=== PATIENT | female | born 1950 | race Caucasian/White ===

== ENCOUNTER 2023-12-06 15:27 | Inpatient (IN) | payer OTHER, SELFPAY ==
[2023-12-06 10:35] VITALS: BP 107/70
[2023-12-06 11:16] VITALS: BMI 22.1
[2023-12-06 11:21] VITALS: BP 125/61
--- NOTE | 2023-12-06 12:20 | ED.GENMED ---
History of Present Illness
<Corinna Arellano PA-C - Last Filed: 12/18/23 10:02>
General
Chief Complaint: Nose Bleed
Source: patient and family
Exam Limitations: dementia
Time Seen by Provider: 12/06/23 11:20
Nursing documentation reviewed up to this point in time: agreed with
Travel History
Have you had any contact with someone who has COVID-19?: No
Do you have any symptoms of coronavirus? Fever > 100 degrees, chills, cough, shortness of breath, sore throat, loss of taste or smell, muscle aches, or headache?: No
History of Present Illness
History of Present Illness:
73 Y/O F with ho RA on hydroxychloroquine, prednisone
here with sore thraot x 1 week, mouth sores which are new and painful
she also had a spontaneous L nose bleed this mornig
she thinks she blew her nose before it started
no active bleeding now, she held pressure and it stopped
she has not had any fever, chills
Past History
<ACE De Dios Last Filed: 12/18/23 10:02>
Past History
ED Past Medical History: GERD
ED Past Surgical History: None
Social History
Tobacco: Non-smoker
Personal:
Living: with family
Review of Systems
<ACE De Dios Last Filed: 12/18/23 10:02>
Review of Systems
Allergies reviewed?: Yes
All Other Systems: Not applicable
Phy Exam
<ACE De Dios Last Filed: 12/18/23 10:02>
Physical Exam
Physical Exam:
GENERAL: Alert , in no apparent distress, generally weak
EYE: pupils equal and reactive
NECK: Supple
ENT: difficult exam post pharynx
pt has some inflammation,e rythema
she does not have obvious exudates
but there are lesions to mucosa lower lip and right cheek that look like stomatitis
left anterior spetal nostril with dried blood, no active bleeding
CARDIAC: Regular rate and rhythm, no edema
LUNGS: Clear breath sounds bilaterally, no acute respiratory distress, no wheezes/rales/rhonchi, occ cough
ABDOMEN: Soft, without focal tenderness, no r/g, no cvat, normal bowel sounds
NEUROLOGICAL: Alert and oriented, no focal neuro deficits
SKIN: Warm and dry, skin intact.
MUSCULOSKELETAL: No edema, well perfused.
PSYCH: Normal and appropriate interaction.
Course
<Corinna Arellano PA-C - Last Filed: 12/18/23 10:02>
Orders/Labs/Results
Orders:
Orders
12/06/23 11:25
Rapid Strep Group A Urgent
SUNDAR Source: Throat/Pharynx
Specimen Description:
Date Specimen was Collected: 12/06/23
Time Specimen was Collected: 11:24
Throat Culture [Throat Culture, Comprehensive] Urgent
SUNDAR Source: Throat/Pharynx
Specimen Description:
Date Specimen was Collected: 12/06/23
Time Specimen was Collected: 11:24
12/06/23 12:25
IV Insert/Care/Rem.- Treatment PRN
0.9% Sodium Chloride 1000 ml [Nss] 1,000 ml IV BOLUS
CefTRIAXone [Rocephin] 1,000 mg IV NOW STA
Dexamethasone Sod Phosphate [Decadron] 8 mg IV NOW STA
Soft Tissue, Neck [CR Soft Tissue Neck ] Urgent
Comment:
Reason For Exam: Severe sore throat
12/06/23 12:43
Basic Metabolic Panel Urgent
Complete Blood Count/With Diff Urgent
Folate Routine
Manual Differential Urgent
TSH Reflex To Free T4 Routine
Vitamin B12 Routine
12/06/23 12:46
Sterile Water [Sterile Water For Injection] 10 ml .ROUTE .STK-MED ONE
12/06/23 12:57
COVID-19 Antigen Urgent
Source: Nasal Swab
12/06/23 15:00
Admit/Transfer Patient As Directed
Co-Sign Provider:
Level of Care: Inpatient admission
Assign to:: Medical/Surgical
Physician / Group: Nile Oliveros
Diagnosis: Stomatitis, Sore throat, lukopenia
Reason for Hospitalization: Stomatitis, Sore throat, lukopenia
Expected length of stay greater than two midnights?: Yes
ELOS- Estimated Length of Stay in days: 2
I certify the patient meets the requirements for IP care: Yes
12/06/23 15:01
Code Status As Directed
Resuscitation Status: Full Code
12/06/23 15:37
Methotrexate, Sensitive [S] Urgent
12/06/23 17:14
0.9% Sodium Chloride 1000 ml [Nss] 1,000 ml IV 75 mls/hr
Acetaminophen [Tylenol] 650 mg PO Q4HPRN PRN
Bisacodyl [Dulcolax] 10 mg RECTAL [id number] PRN
Docusate W/Senna [Senokot-S] 1 tablet PO BIDPRN PRN
FA/Cyanocobalamin/Pyridoxine [Foltx] 1 tablet PO DAILY
Mag&Al/Sim/Diphenhyd/Lidocaine [First-Mouthwash Blm Suspension] 5 ml PO QIDPRN PRN
Ondansetron Injectable [Zofran] 4 mg IV Q6HPRN PRN
Polyethylene Glycol Powder [Miralax] 17 grams PO DAILYPRN PRN
12/06/23 17:14
Activity As Directed
Activity Level: As Tolerated
Pneumatic Compression Sleeves As Directed
Type: Knee high
Vital Signs As Directed
Frequency: Per unit guidelines
DX Deep Vein Thrombosis Video Routine
12/06/23 22:00
Mesalamine [Rowasa, Canasa Suppository] 1,000 mg RECTAL HS
12/07/23 08:00
Pantoprazole [Protonix] 40 mg PO DAILY
Prednisone [Deltasone] 5 mg PO DAILY
mesalamine See Dose Instructions PO DAILY
12/07/23 08:03
Complete Blood Count/With Diff IN AM
NT-proBNP IN AM
Abnormal Lab Results
12/06/23
12:43
WBC 1.3 L* 10^3/uL
(4.8-10.8)
RBC 3.87 L 10^6/uL
(4.20-5.40)
Hgb 10.3 L g/dL
(12.0-16.0)
Hct 32.1 L %
(37.0-47.0)
MCH 26.6 L pg
(27.0-31.0)
MCHC 32.1 L g/dL
(33.0-37.0)
RDW 15.9 H %
(11.5-14.5)
Segmented Neutrophils 30 L %
(42-75)
Lymphocytes (Manual) 60 H %
(20-51)
Eosinophils (Manual) 7 H %
(0-6)
BUN 21 H mg/dl
(7-17)
Calcium 10.4 H mg/dl
(8.4-10.2)
Folate > 20.0 H ng/ml
(2.76-20)
12/06/23 12:43
12/06/23 12:43
Vital Signs
Initial and Last Documented VS:
Initial Vital Signs
Temp Pulse Resp BP Pulse Ox
97.9 F 81 18 107/70 100
12/06/23 10:35 12/06/23 10:35 12/06/23 10:35 12/06/23 10:35 12/06/23 10:35
Last Documented Vital Signs
Temp Pulse Resp BP Pulse Ox
98.3 F 95 18 137/69 97
12/14/23 07:44 12/14/23 07:44 12/14/23 07:44 12/14/23 07:44 12/14/23 07:44
<Reginald Argueta MD - Last Filed: 12/06/23 13:24>
Orders/Labs/Results
Orders:
Orders
12/06/23 11:25
Rapid Strep Group A Urgent
SUNDAR Source: Throat/Pharynx
Specimen Description:
Date Specimen was Collected: 12/06/23
Time Specimen was Collected: 11:24
Throat Culture [Throat Culture, Comprehensive] Urgent
SUNDAR Source: Throat/Pharynx
Specimen Description:
Date Specimen was Collected: 12/06/23
Time Specimen was Collected: 11:24
12/06/23 12:25
IV Insert/Care/Rem.- Treatment PRN
0.9% Sodium Chloride 1000 ml [Nss] 1,000 ml IV BOLUS
CefTRIAXone [Rocephin] 1,000 mg IV NOW STA
Dexamethasone Sod Phosphate [Decadron] 8 mg IV NOW STA
Soft Tissue, Neck [CR Soft Tissue Neck ] Urgent
Comment:
Reason For Exam: Severe sore throat
12/06/23 12:43
Basic Metabolic Panel Urgent
Complete Blood Count/With Diff Urgent
Folate Routine
Manual Differential Urgent
TSH Reflex To Free T4 Routine
Vitamin B12 Routine
12/06/23 12:46
Sterile Water [Sterile Water For Injection] 10 ml .ROUTE .STK-MED ONE
12/06/23 12:57
COVID-19 Antigen Urgent
Source: Nasal Swab
12/06/23 15:00
Admit/Transfer Patient As Directed
Co-Sign Provider:
Level of Care: Inpatient admission
Assign to:: Medical/Surgical
Physician / Group: Nile Oliveros
Diagnosis: Stomatitis, Sore throat, lukopenia
Reason for Hospitalization: Stomatitis, Sore throat, lukopenia
Expected length of stay greater than two midnights?: Yes
ELOS- Estimated Length of Stay in days: 2
I certify the patient meets the requirements for IP care: Yes
12/06/23 15:01
Code Status As Directed
Resuscitation Status: Full Code
12/06/23 15:37
Methotrexate, Sensitive [S] Urgent
12/06/23 17:14
0.9% Sodium Chloride 1000 ml [Nss] 1,000 ml IV 75 mls/hr
Acetaminophen [Tylenol] 650 mg PO Q4HPRN PRN
Bisacodyl [Dulcolax] 10 mg RECTAL [id number] PRN
Docusate W/Senna [Senokot-S] 1 tablet PO BIDPRN PRN
FA/Cyanocobalamin/Pyridoxine [Foltx] 1 tablet PO DAILY
Mag&Al/Sim/Diphenhyd/Lidocaine [First-Mouthwash Blm Suspension] 5 ml PO QIDPRN PRN
Ondansetron Injectable [Zofran] 4 mg IV Q6HPRN PRN
Polyethylene Glycol Powder [Miralax] 17 grams PO DAILYPRN PRN
12/06/23 17:14
Activity As Directed
Activity Level: As Tolerated
Pneumatic Compression Sleeves As Directed
Type: Knee high
Vital Signs As Directed
Frequency: Per unit guidelines
DX Deep Vein Thrombosis Video Routine
12/06/23 22:00
Mesalamine [Rowasa, Canasa Suppository] 1,000 mg RECTAL HS
12/07/23 08:00
Pantoprazole [Protonix] 40 mg PO DAILY
Prednisone [Deltasone] 5 mg PO DAILY
mesalamine See Dose Instructions PO DAILY
12/07/23 08:03
Complete Blood Count/With Diff IN AM
NT-proBNP IN AM
Abnormal Lab Results
12/06/23
12:43
WBC 1.3 L* 10^3/uL
(4.8-10.8)
RBC 3.87 L 10^6/uL
(4.20-5.40)
Hgb 10.3 L g/dL
(12.0-16.0)
Hct 32.1 L %
(37.0-47.0)
MCH 26.6 L pg
(27.0-31.0)
MCHC 32.1 L g/dL
(33.0-37.0)
RDW 15.9 H %
(11.5-14.5)
Segmented Neutrophils 30 L %
(42-75)
Lymphocytes (Manual) 60 H %
(20-51)
Eosinophils (Manual) 7 H %
(0-6)
BUN 21 H mg/dl
(7-17)
Calcium 10.4 H mg/dl
(8.4-10.2)
Folate > 20.0 H ng/ml
(2.76-20)
12/06/23 12:43
12/06/23 12:43
Vital Signs
Initial and Last Documented VS:
Initial Vital Signs
Temp Pulse Resp BP Pulse Ox
97.9 F 81 18 107/70 100
12/06/23 10:35 12/06/23 10:35 12/06/23 10:35 12/06/23 10:35 12/06/23 10:35
Last Documented Vital Signs
Temp Pulse Resp BP Pulse Ox
98.3 F 95 18 137/69 97
12/14/23 07:44 12/14/23 07:44 12/14/23 07:44 12/14/23 07:44 12/14/23 07:44
<Corinna Arellano PA-C - Last Filed: 12/18/23 10:02>
MDM/Problems Addressed
Differential Diagnosis Includes:
viral somtatitis, dehydration, strep,
MDM/Problems Addressed:
73 y/o F with h/o RA and immunecompromised
here with oral lesions and sore throat, causing her dec oral intake and dehydration
no fever
no other rash on body
pt has very dry MM with lesions on
her mucosa of her lips, cheeks, tongue; different
ED Attending Note
<Corinna Arellano PA-C - Last Filed: 12/18/23 10:02>
-
Portions of this chart may have been created with voice recognition software.� Occasional wrong word or��sound alike� substitutions may have occurred due to the inherent limitations of voice recognition software.
<Reginald Argueta MD - Last Filed: 12/06/23 13:24>
ED Attending Note
Patient seen and examined by attending physician: Yes
I performed the substantive portion of visit, reviewed & personally made and approve the management plan that is documented in note by myself or ELLIOT.: Yes
ED Attending Note:
Sore throat x 1 week. Nosebleed this morning that self resolved. No fever. No trouble breathing or swallowing. However painful to swallow.
On exam patient is nontoxic. No drooling or stridor. Some dry lips with some early ulcerations of the mucosa. Posterior pharynx with diffuse erythema although difficult to evaluate. She is in no respiratory distress. No current nosebleed. Some
dried blood in the left nares. Nontoxic in appearance impression is probable gingivostomatitis however will cover with antibiotics and give some fluids. Soft tissue lateral neck. Doubt retropharyngeal swelling but will be done for completeness
Discharge Plan
Departure
Patient Disposition: Admit
Date of Disposition: 12/06/23
Time of Disposition: 14:39
Interventions
Interventions:
*Risk Screen - Suicide Last Done: 12/06/23 11:16
*General Assessment Last Done: 12/06/23 11:16
*Neglect/Abuse Screening Last Done: 12/06/23 11:16
ED- Fall Risk Assessment Last Done: 12/06/23 11:16
*ED COVID-19 Vaccine History Last Done: 12/06/23 10:35
*Nursing Disposition Last Done: 12/06/23 17:35
ED-EENT Assessment Last Done: 12/06/23 11:16
Discharge Date and Time
Discharge Date/Time: 12/06/23 17:00
[2023-12-06] MEDS: DECADRON 8 MG IV (12:47)
[2023-12-06] MEDS: ROCEPHIN 1000 MG IV (12:47)
[2023-12-06] MEDS: NSS 1000 IV ×2 (12:48→18:03)
[2023-12-06 13:18] LABS: Blood Urea Nitrogen 21 mg/dl (7-17); Calcium 10.4 mg/dl (8.4-10.2); Carbon Dioxide 22 mmol/L (22-30); Chloride 107 mmol/L (98-107); Estimated Creatinine Clearance 47 ml/min; Glucose 96 mg/dl (70-99); Sodium 137 mmol/L (135-145); eGFR > 60.00
[2023-12-06 13:25] LABS: COVID-19 Antigen Negative (Negative)
[2023-12-06 13:26] LABS: Hematocrit 32.1 % (37.0-47.0); Hemoglobin 10.3 g/dL (12.0-16.0); Mean Corp Hgb Conc. 32.1 g/dL (33.0-37.0); Mean Corpuscular Hgb 26.6 pg (27.0-31.0); Mean Corpuscular Volume 82.9 fL (81.0-99.0); Nucleated Red Blood Cells % 0 %; Platelet Count 171 10^3/uL (130-400); Red Blood Cell Count 3.87 10^6/uL (4.20-5.40); Red Cell Dist. Width 15.9 % (11.5-14.5)
[2023-12-06 13:30] LABS: White Blood Cell Count 1.3 10^3/uL (4.8-10.8)
[2023-12-06 14:17] LABS: Eosinophils 7 % (0-6); Lymphocytes 60 % (20-51); Monocytes 3 % (2-9); Segmented Neutrophils 30 % (42-75)
[2023-12-06 14:18] LABS: Hypochromasia 2+; Platelets Checked Yes; Polychromasia Slight
[2023-12-06 14:19] LABS: Anisocytosis Slight; Stomatocytes Slight
[2023-12-06 14:20] LABS: Normal RBC Morphology No; Ovalocytes Slight; Total Cells Counted 100
[2023-12-06 14:21] LABS: Band Neutrophils 0 % (0-3)
--- NOTE | 2023-12-06 15:18 | HPS.HSE ---
Addendum entered and electronically signed by Nile Oliveros MD 12/07/23 08:03:
CHANGE:
Patient taking BID MTX for 7-8 days ~ 100mg MTX taken
Original Note:
Family Physician
-
Family Physician: Annette Pro DO
Chief Complaint
-
Sore throat, mouth ulcers
History of Present Illness
Patient is a 73-year-old female with past medical history of rheumatoid arthritis, GERD came to ER with new onset of sore throat and mouth ulcer for last few days. Patient initially started noticing some mouth ulceration especially on the lips few
days back and continued to get worse. Patient also noted having sore throat and difficulty eating food. No drooling patient has been afebrile. Denies of having any previous history of similar problems in the past.
Of note patient has been maintained on methotrexate and Plaquenil by primary buildings and grounds director. Recently patient has been started on methotrexate and according to he has been giving patient 3 tablets of methotrexate twice daily for last 3 days.
Patient denies of any other problems of abdominal pain/nausea/vomiting/diarrhea/dysuria.
Medical History
Past Medical History
Past Medical History: Reports Other
Additional Past Medical History:
rheumatoid arthritis, GERD
Past Surgical History: Reports Other
Social History
Tobacco: Non-smoker
Alcohol: None
Drug: None
Personal:
Living: With Family
Family History
Family History: Not pertinent
Allergies / Home Medications
Allergies reflects when Allergies were last updated in [facility].
Home Medications with original date entered in [facility]
Allergy/Medication List:
Allergies
Allergy/AdvReac Type Severity Reaction Status Date / Time
No Known Allergies Allergy Verified 12/06/23 10:36
Home Medications
ascorbic acid (vitamin C) 1,000 mg tablet (Vitamin C) 1,000 mg PO DAILY 12/06/23
cholecalciferol (vitamin D3) 50 mcg (2,000 unit) tablet 50 mcg PO DAILY 12/06/23
folic acid 1 mg tablet 1 mg PO DAILY 12/06/23
linda (Zingiber officinalis) 550 mg capsule 550 mg PO DAILY 12/06/23
hydroxychloroquine 200 mg tablet 200 mg PO DAILY 12/06/23
magnesium 250 mg tablet 250 mg PO DAILY 12/06/23
mesalamine 1,000 mg rectal suppository 1 g WI HS 12/06/23
mesalamine 1.2 gram tablet,delayed release 3.6 g PO DAILY 12/06/23
methotrexate sodium 2.5 mg tablet 0 mg PO . SEE BELOW 12/06/23
lbhubmqfpwmp-sbacgcuf-sihqrv tablet 1 tab PO DAILY 12/06/23
naproxen sodium 220 mg tablet (Aleve) 440 mg PO BID PRN mild pain 12/06/23
omega 7-eih-yre-fish oil 1,000 mg (120 mg-180 mg) capsule (Fish Oil) 2 cap PO DAILY 12/06/23
omeprazole 20 mg capsule,delayed release 20 mg PO DAILY 12/06/23
prednisone 5 mg tablet 5 mg PO DAILY 12/06/23
Review of Systems
-
A 12 point ROS was completed and negative except as noted: Yes
Physical Exam
Vital Signs
Vital Signs
Temp Pulse Resp BP Pulse Ox
97.9 F 70 16 125/61 100
12/06/23 10:35 12/06/23 11:21 12/06/23 11:21 12/06/23 11:21 12/06/23 11:21
Physical Exam
General: No Apparent Distress
HEENT: Other (Mouth ulcers)
Respiratory: Clear
Cardiac: S1/S2 and Regular Rhythm; No Murmur or Rub
GI: Soft, Non Tender, Non Distended and Normal Bowel Sounds; No Organomegaly
Rectal: Deferred by Provider
Musculoskeletal: No Clubbing, No Cyanosis and No Edema
Skin: No Rash
Neuro: Nonfocal/grossly intact
Laboratory Results
-
12/06/23 12:43
12/06/23 12:43
Data Reviewed
-
Lab Data: Labs Reviewed by me and Discussed with Family
Impression/Plan
-
1. Acute stomatitis
Sore throat
Suspected methotrexate toxicity
Leukopenia/anemia
-Acute onset of mouth ulcerations/sore throat. Patient afebrile
-CBC showing leukopenia with WBC 1.3K, segmented neutrophil 30% and lymphocytes 60% no atypical lymphocytes reported.
- stated of patient getting methotrexate 2.5 mg x3 tablets twice daily for last 3 days -45 mg total
-May have component of methotrexate toxicity related stomatitis. Level check ordered although lab test is a send out
-Starting on leucovorin 15 mg every 6 hours after discussion with pharmacy
-Repeat CBC with differential check in the morning ordered
-Strep throat and throat culture has been ordered. COVID-negative.
-Ordering Magic mouthwash for symptomatic care
-Maintain on IV fluid, full liquid diet as tolerated.
-Hematology consulted for further evaluation of leukopenia.
2. Rheumatoid arthritis
-Continue prednisone 5 mg daily
-Hold Plaquenil/methotrexate for now
3. GERD
-maintain on omeprazole
DVT PPX -scd
Full code
Total time spent : 78 mins
I personally saw and examined the patient.
I have reviewed all diagnostic interpretations and treatment plans as written.
Time includes patient management by me, time spent at the patients bedside, time to review lab and imaging results, discussing patient care, documentation in the medical record, and time spent with the family or caregiver and discussing care plan
with RN/Consultants.
[2023-12-06 15:36] VITALS: BP 116/44
[2023-12-06 16:30] VITALS: BP 117/81
[2023-12-06] MEDS: WELLCOVORIN 1.5 MG IV ×2 (16:30→21:48)
--- NOTE | 2023-12-06 17:08 | EDRN ---
Patient taken to room 429-1 on stretcher by ED RN. is with patient.
[2023-12-06 17:35] VITALS: BP 123/78
[2023-12-06] MEDS: FOLTX 1 TABLET PO (18:26)
[2023-12-06 18:48] LABS: TSH Reflex To Free T4 1.74 uIU/ml (0.47-4.68)
[2023-12-06 19:23] LABS: Folate > 20.0 ng/ml (2.76-20); Vitamin B12 771 pg/ml (239-931)
[2023-12-06] MEDS: ROWASA, CANASA SUPPOSITORY 1000 MG RECTAL (21:48)
[2023-12-06 23:00] VITALS: BP 127/59
[2023-12-07] MEDS: WELLCOVORIN 1.5 MG IV ×3 (03:54→16:27)
[2023-12-07] MEDS: TUMS 2 TABLET PO ×2 (04:43→22:37)
[2023-12-07 07:30] VITALS: BP 136/63
[2023-12-07 08:28] LABS: % Eosinophils 4.7 % (0-6); % Immature Granulocytes 0.5 % (0-0.5); % Monocytes 0.5 % (1.7-9.3); % Neutrophils 48.3 % (42.2-75.2); Absolute Eosinophils 0.1 10^3/uL (0-0.7); Hematocrit 27.8 % (37.0-47.0); Hemoglobin 8.8 g/dL (12.0-16.0); Mean Corp Hgb Conc. 31.7 g/dL (33.0-37.0); Mean Platelet Volume 10.1 fL (7.4-10.4); Nucleated Red Blood Cells % 0 %; Platelet Count 131 10^3/uL (130-400); Red Blood Cell Count 3.39 10^6/uL (4.20-5.40); Red Cell Dist. Width 15.9 % (11.5-14.5)
[2023-12-07 08:35] LABS: White Blood Cell Count 2.1 10^3/uL (4.8-10.8)
[2023-12-07 08:58] LABS: NT-proBNP 808 pg/ml
[2023-12-07] MEDS: FOLTX 1 TABLET PO (09:18)
[2023-12-07] MEDS: DELTASONE 5 MG PO (09:18)
[2023-12-07] MEDS: PROTONIX 40 MG PO (09:18)
[2023-12-07] MEDS: FIRST-MOUTHWASH BLM SUSPENSION 5 ML PO ×3 (09:20→22:41)
[2023-12-07] MEDS: NSS 1000 IV ×2 (09:26→22:27)
[2023-12-07 09:46] LABS: Hepatitis C Antibody Negative (Negative)
--- NOTE | 2023-12-07 13:03 | CM ---
Cm met with patient and in room. Cm confirmed demographics. Patient lives independently with . Patient denies history of VN, or SNF. Patient dose not rely on ambulatory aides. Patient confirmed medication coverage and uses [facility] for
medication services. Patient is active with her PCP.
PLAN: Home no needs.
--- NOTE | 2023-12-07 14:20 | CON.ONC ---
Documented by User: CARLA Ramirez 12/07/23 14:49
Impression
Impression
Rheumatoid arthritis on Methotrexate
Acute neutropenia
Anemia (baseline 12-14)
Mild thrombocytopenia (baseline 230-340)
Mouth ulcers
Sore throat
Patient History
History of Present Illness
Kia is a 73 year old female with history of rheumatoid arthritis who presented to the ER yesterday, 12/05, with complaints of sore throat, mouth sores, and nose bleeds x1 week. She was able to stop acute epistaxis by holding pressure. She is
managed on Methotrexate and Plaquenil for history of RA. She was found to be neutropenic in the ER and has been admitted for further evaluation and treatment.
Past-Medical/Surgical History
GERD
Hypothyroidism
Hyperlipidemia
Colonoscopy (2020)
RA on Methotrexate
Patient Medication
�Medication �Instructions �Recorded �Confirmed �Last Taken �Type
ascorbic acid (vitamin C) 1,000 mg 1,000 mg PO DAILY Supplement 12/06/23 12/06/23 12/05/23 History
tablet (Vitamin C)
cholecalciferol (vitamin D3) 50 50 mcg PO DAILY Supplement 12/06/23 12/06/23 12/05/23 History
mcg (2,000 unit) tablet
folic acid 1 mg tablet 1 mg PO DAILY Supplement 12/06/23 12/06/23 12/05/23 History
linda (Zingiber officinalis) 550 550 mg PO DAILY Supplement 12/06/23 12/06/23 12/05/23 History
mg capsule
hydroxychloroquine 200 mg tablet 200 mg PO DAILY rheumatoid 12/06/23 12/06/23 12/05/23 History
arthritis
magnesium 250 mg tablet 250 mg PO DAILY Supplement 12/06/23 12/06/23 12/05/23 History
mesalamine 1,000 mg rectal 1 g UT HS 12/06/23 12/06/23 12/05/23 History
suppository
mesalamine 1.2 gram tablet,delayed 3.6 g PO DAILY 12/06/23 12/06/23 12/05/23 History
release
methotrexate sodium 2.5 mg tablet 0 mg PO . SEE BELOW 12/06/23 12/06/23 12/05/23 History
rheumatoid arthritis
jxjperfdmock-ukmcpgph-nzlwcs tablet 1 tab PO DAILY Supplement 12/06/23 12/06/23 12/05/23 History
naproxen sodium 220 mg tablet 440 mg PO BID PRN mild pain 12/06/23 12/06/23 12/05/23 History
(Aleve)
omega 2-dyl-gst-fish oil 1,000 mg 2 cap PO DAILY Supplement 12/06/23 12/06/23 12/05/23 History
(120 mg-180 mg) capsule (Fish Oil)
omeprazole 20 mg capsule,delayed 20 mg PO DAILY Gastrointestinal 12/06/23 12/06/23 12/05/23 History
release Issue
prednisone 5 mg tablet 5 mg PO DAILY Anti-Inflammatory 12/06/23 12/06/23 12/05/23 History
Active Medications
Generic Name Dose Route Start Last Admin
Trade Name Freq PRN Reason Stop Dose Admin
Acetaminophen 650 mg 12/06/23 17:14
Acetaminophen 325 Mg Tablet PO 01/03/24 17:13
Q4HPRN PRN
mild pain/MOSQUEDA/temp> 100.4F
Bisacodyl 10 mg 12/06/23 17:14
Bisacodyl 10 Mg Rectal Suppository RECTAL 01/03/24 17:13
[id number] PRN
constipation
Calcium Carbonate 2 tablet 12/07/23 04:16 12/07/23 04:43
Calcium Carbonate 500 Mg (Regular-Strength) Chew Tablet PO 01/04/24 04:15 2 tablet
Q4HPRN PRN Administration
indigestion
Folic Acid 1 tablet 12/06/23 17:14 12/07/23 09:18
Folbic (Same As Foltx) PO 01/03/24 17:13 1 tablet
DAILY JANIE Administration
Leucovorin Calcium 15 mg/ 1.5 mls @ 30 mls/hr 12/06/23 16:00 12/07/23 09:18
Device IV 01/03/24 15:59 1.5 mls
Q6H JANIE Administration
Sodium Chloride 1,000 mls @ 75 mls/hr 12/06/23 17:14 12/07/23 09:26
Nss IV 1,000 mls
[id number] JANIE Administration
Lidocaine/Diphenhydr/Alum/Mg/Simeth 5 ml 12/06/23 17:14 12/07/23 09:20
Magic Mouthwash 5 Ml Cup (Mag&Al/Sim/Diphenhyd/Lidocaine) PO 01/03/24 17:13 5 ml
QIDPRN PRN Administration
sore throat
Mesalamine 1,000 mg 12/06/23 22:00 12/06/23 21:48
Mesalamine 1000 Mg Rectal Suppository RECTAL 01/03/24 21:59 1,000 mg
HS JANIE Administration
Mesalamine 1.2 Gram 0 grams 12/07/23 08:00
3.6gm [3 Tablets] Po PO 01/04/24 07:59
Daily DAILY JANIE
Ondansetron HCl 4 mg 12/06/23 17:14
Ondansetron 4 Mg/2 Ml Vial IV 01/03/24 17:13
Q6HPRN PRN
nausea and vomiting
Pantoprazole Sodium 40 mg 12/07/23 08:00 12/07/23 09:18
Pantoprazole 40 Mg Delayed Release Tablet PO 01/04/24 07:59 40 mg
DAILY JANIE Administration
Polyethylene Glycol 17 grams 12/06/23 17:14
Polyethylene Glycol Powder 17 Grams Packet PO 01/03/24 17:13
DAILYPRN PRN
constipation
Prednisone 5 mg 12/07/23 08:00 05/03/24 09:18
Prednisone 5 Mg Tablet PO 01/04/24 07:59 5 mg
DAILY JANIE Administration
Senna/Docusate Sodium 1 tablet 12/06/23 17:14
Docusate W/Senna (Tamara-Colace) Tablet PO 01/03/24 17:13
BIDPRN PRN
constipation
Sodium Chloride 0 flush 12/06/23 18:00
Sodium Chloride 0.9% (Flush) Syringe IV 01/03/24 17:59
PER PROTOCOL JANIE
Physical Exam
Labs
Lab Results
WBC 2.1 10^3/uL (4.8-10.8) L* 12/07/23 08:03
RBC 3.39 10^6/uL (4.20-5.40) L 12/07/23 08:03
Hgb 8.8 g/dL (12.0-16.0) L 12/07/23 08:03
Hct 27.8 % (37.0-47.0) L 12/07/23 08:03
MCV 82.0 fL (81.0-99.0) 12/07/23 08:03
MCH 26.0 pg (27.0-31.0) L 12/07/23 08:03
MCHC 31.7 g/dL (33.0-37.0) L 12/07/23 08:03
RDW 15.9 % (11.5-14.5) H 12/07/23 08:03
Plt Count 131 10^3/uL (130-400) D 12/07/23 08:03
MPV 10.1 fL (7.4-10.4) 12/07/23 08:03
Abs Immat Gran (auto) 0.0 10^3/uL (0-0.05) 12/07/23 08:03
Absolute Neuts (auto) 1.0 10^3/uL (1.4-6.5) L 12/07/23 08:03
Absolute Lymphs (auto) 1.0 10^3/uL (1.2-3.4) L 12/07/23 08:03
Absolute Monos (auto) 0.0 10^3/uL (0.1-0.6) L 12/07/23 08:03
Absolute Eos (auto) 0.1 10^3/uL (0-0.7) 12/07/23 08:03
Absolute Basos (auto) 0.0 10^3/uL (0-0.2) 12/07/23 08:03
Immature Gran % 0.5 % (0-0.5) 12/07/23 08:03
Neutrophils % 48.3 % (42.2-75.2) 12/07/23 08:03
Lymphocytes % 46.0 % (20.5-51.1) 12/07/23 08:03
Monocytes % 0.5 % (1.7-9.3) L 12/07/23 08:03
Eosinophils % 4.7 % (0-6) 12/07/23 08:03
Basophils % 0.0 % (0-2) 12/07/23 08:03
Creatinine 0.9 mg/dL (0.6-1.0) 12/06/23 12:43
Vital Signs
Vital Signs
Temp Pulse Resp BP Pulse Ox
97.9 F 64 18 136/63 100
12/07/23 07:30 12/07/23 07:30 12/07/23 07:30 12/07/23 07:30 12/07/23 07:30

Documented by User: Lata Cassidy DO 12/07/23 18:38
Plan
Plan
- pt presenting with stomatitis, new leukopenia and anemia in the setting of accidental MTX overdose.
- folate normal. continue folic acid 1 mg daily
- Cr normal
- agree with aggressive hydration, receiving leucovorin
- low suspicion for primary bone marrow issue with no alarming symptoms or exam findings, decrease in all cell lines with already an improvement. recommend holding MTX, repeating CBC with rheum in 1 week and if counts normalized can resume at
correct dose vs. continue to hold until recovered. if cytopenias do not resolve despite several weeks of holding MTX then can see hematology outpt
thank you for consultation. we will continue to follow peripherally with monitoring for ongoing count recovery. contact team with questions.
Patient History
History of Present Illness
Kia is a 73 year old female with history of rheumatoid arthritis who presented to the ER yesterday, 12/05, with complaints of sore throat, mouth sores, and nose bleeds x1 week. She was able to stop acute epistaxis by holding pressure. She is
managed on Methotrexate and Plaquenil for history of RA and her dose was recently changed by Dr. Liz. She was supposed to change from 2.5 mg, 8 tabs weekly to 3 tabs BID once a week. Her who manages her pills got confused and she was taking
3 tabs BID daily for past 7 days. CBC on admission showed WBC 1.3, hgb 10.3, plts 131K. Differential with ANC 1000 with mildly low lymph and monos as well. Prior CBCs with most recent in August showed normal hgb, WBC, plts. pt denies unexplained
weight loss, fevers, night sweats, rashes.
Review of Systems
-
History Source: Patient
All Other Systems: Reviewed and Negative (except documented in HPI)
Physical Exam
-
General: Well Developed, Well Nourished and No Apparent Distress
HEENT: Other (ulcerated lesions involving lower > upper lip mucosa ); Negative Jaundice
Cardiology: Normal Sinus Rhythm
Pulmonary: Clear
GI: Soft
Musculoskeletal: No Edema
Neurology: Non Focal
Hematologic / Lymphatic: No Lymphadenopathy
Psych: Calm
[2023-12-07 15:30] VITALS: BP 105/65
--- NOTE | 2023-12-07 16:11 | W.PN.HOSP.TC ---
Today's Communication/Plan
-
repeat CBC in AM
MTX level check ordered
Assessment / Plan
Assessment / Plan
1. Methotrexate toxicity
Acute stomatitis
Sore throat
Leukopenia/anemia
-Acute onset of mouth ulcerations/sore throat. Patient afebrile
-CBC showing leukopenia with WBC 1.3K, segmented neutrophil 30% and lymphocytes 60% no atypical lymphocytes reported.
- stated of patient getting methotrexate 2.5 mg x3 tablets twice daily for last 7-8 days ~ 110-120 mg total dose
-Likely have component of methotrexate toxicity related stomatitis.
-Starting on leucovorin 15 mg every 6 hours after discussion with pharmacy
-Repeat CBC showing increasing Total wbc count with increasing ANC
-Strep throat cs neg and throat culture pending. COVID-negative.
-Ordering Magic mouthwash for symptomatic care
-Maintain on IV fluid, diet advanced to reg diet
-Hematology consulted for further evaluation of leukopenia.
2. Rheumatoid arthritis
-Continue prednisone 5 mg daily
-Hold Plaquenil/methotrexate for now
3. GERD
-maintain on omeprazole
DVT PPX -scd
Full code
Anticipated Discharge: Within 24 hours
Subjective/Interval History
-
Date of Service: December 07, 2023
throat pain is better
afebrile in night
Objective Data
-
Labs:
Laboratory Results
12/07/23
08:03
WBC 2.1 L*
Hgb 8.8 L
Hct 27.8 L
Plt Count 131 D
Vital Signs:
Vital Signs
Temp Pulse Resp BP Pulse Ox
97.8 F 76 18 105/65 100
12/07/23 15:30 12/07/23 15:30 12/07/23 15:30 12/07/23 15:30 12/07/23 15:30
Review of Systems
-
Respiratory: Reports No Symptoms
Cardiac: Reports No Symptoms
Abdomen/GI: Reports No Symptoms
Physical Exam
-
General: No Apparent Distress and Comfortable
HEENT: Negative Oxygen
Respiratory: Other (Lip ulcers)
Cardiac: Regular Rhythm and S1/S2; Negative Murmur or Rub
GI: Soft, Nontender, Nondistended and Normal Bowel Sounds
Musculoskeletal: No Edema
Neuro: Awake, Alert, Oriented, No Motor Deficits and Nonfocal/Grossly Intact
Psych: Calm
[2023-12-07] MEDS: ROWASA, CANASA SUPPOSITORY 1000 MG RECTAL (22:27)
[2023-12-07] MEDS: WELLCOVORIN IV (22:45)
[2023-12-07 23:10] VITALS: BP 131/60
[2023-12-08] MEDS: WELLCOVORIN IV (04:44)
[2023-12-08 06:22] LABS: Blood Urea Nitrogen 13 mg/dl (7-17); Calcium 9.3 mg/dl (8.4-10.2); Carbon Dioxide 21 mmol/L (22-30); Chloride 114 mmol/L (98-107); Estimated Creatinine Clearance 60 ml/min; Glucose 93 mg/dl (70-99); Potassium 3.6 mmol/L (3.5-5.1); Sodium 137 mmol/L (135-145); eGFR > 60.00
[2023-12-08 08:00] VITALS: BP 118/74
[2023-12-08] MEDS: PROTONIX 40 MG PO (08:18)
[2023-12-08] MEDS: DELTASONE 5 MG PO (08:18)
[2023-12-08] MEDS: FOLTX 1 TABLET PO (08:18)
[2023-12-08] MEDS: FIRST-MOUTHWASH BLM SUSPENSION 5 ML PO ×2 (08:21→22:10)
[2023-12-08 09:24] LABS: % Eosinophils 13.9 % (0-6); % Lymphocytes 55.4 % (20.5-51.1); % Neutrophils 30.7 % (42.2-75.2); Absolute Eosinophils 0.3 10^3/uL (0-0.7); Absolute Lymphocytes 1.1 10^3/uL (1.2-3.4); Hematocrit 24.7 % (37.0-47.0); Mean Corp Hgb Conc. 32.4 g/dL (33.0-37.0); Mean Corpuscular Hgb 26.7 pg (27.0-31.0); Mean Corpuscular Volume 82.3 fL (81.0-99.0); Nucleated Red Blood Cells % 0 %; Red Cell Dist. Width 15.8 % (11.5-14.5)
[2023-12-08] MEDS: WELLCOVORIN 1.5 MG IV ×3 (09:51→22:02)
[2023-12-08 10:23] LABS: Mean Platelet Volume 10.3 fL (7.4-10.4); Platelet Count 92 10^3/uL (130-400)
[2023-12-08 10:26] LABS: Absolute Neutrophils 0.6 10^3/uL (1.4-6.5)
--- NOTE | 2023-12-08 13:58 | W.PN.HOSP.TC ---
Today's Communication/Plan
-
see note
Assessment / Plan
Assessment / Plan
1. Methotrexate toxicity
Acute stomatitis
Sore throat
Pancytopenia
-Acute onset of mouth ulcerations/sore throat. Patient afebrile
-CBC showing leukopenia with WBC 1.3K, segmented neutrophil 30% and lymphocytes 60% no atypical lymphocytes reported.
- stated of patient getting methotrexate 2.5 mg x3 tablets twice daily for last 7-8 days ~ 110-120 mg total dose
-Likely have component of methotrexate toxicity related stomatitis.
-Starting on leucovorin 15 mg every 6 hours after discussion with pharmacy
-Strep throat cs neg and throat culture pending. COVID-negative.
-Ordering Magic mouthwash for symptomatic care
-Repeat CBC showing declining ANC. Patient also getting anemic with hemoglobin down to 8. Platelet count down to 92 K
-Methotrexate level undetectable today. Admission check MTX level pending
-Check EBV/hepatitis/HIV serology.
-Have RA h/o check RA/Anti-CCP/ANCA panel - r/o felty syndrome.
-Hematology asked to re-evaluate- will be getting G-csf injection
-Monitor for any temp > 100.5 F - will need to be started on cefepime
2. Rheumatoid arthritis
-Continue prednisone 5 mg daily
-Hold Plaquenil/methotrexate for now
3. GERD
-maintain on omeprazole
DVT PPX -scd
Full code
Total time psen
Anticipated Discharge: 24 - 48 hours
Subjective/Interval History
-
Date of Service: December 08, 2023
sore throat improved
able to tolerate diet
Objective Data
-
Labs:
Laboratory Results
12/08/23 12/08/23
05:57 09:17
WBC 2.0 L*
Hgb 8.0 L
Hct 24.7 L
Plt Count 92 L D
Sodium 137
Potassium 3.6
Chloride 114 H
Carbon Dioxide 21 L
BUN 13
Creatinine 0.7
Glucose 93
Calcium 9.3
Vital Signs:
Vital Signs
Temp Pulse Resp BP Pulse Ox
98.2 F 70 18 118/74 100
12/08/23 08:00 12/08/23 08:00 12/08/23 08:00 12/08/23 08:00 12/08/23 08:00
I&O
12/07/23 12/08/23 12/09/23
06:59 06:59 06:59
Intake Total 600 / 600
Balance 600 / 600
Review of Systems
-
Respiratory: Reports No Symptoms
Cardiac: Reports No Symptoms
Abdomen/GI: Reports No Symptoms
Physical Exam
-
General: No Apparent Distress and Comfortable
HEENT: Negative Oxygen
Respiratory: Other (Lip ulcers)
Cardiac: Regular Rhythm and S1/S2; Negative Murmur or Rub
GI: Soft, Nontender, Nondistended and Normal Bowel Sounds
Musculoskeletal: No Edema
Neuro: Awake, Alert, Oriented, No Motor Deficits and Nonfocal/Grossly Intact
Psych: Calm
--- NOTE | 2023-12-08 14:21 | W.PN.ONC ---
Today's Communication / Plan
-
neutropenia worsening-- CSF now that MTX not measurable-- if ANC >1k then d/c with f/u in office for CSF/ WBC check
Impression
Impression
Rheumatoid arthritis on Methotrexate
Acute neutropenia
Anemia (baseline 12-14)
Mild thrombocytopenia (baseline 230-340)
Mouth ulcers
Sore throat
Plan
Plan
- pt presenting with stomatitis, new leukopenia and anemia in the setting of accidental MTX overdose.
- folate normal. continue folic acid 1 mg daily
- Cr normal
- agree with aggressive hydration, receiving leucovorin
- low suspicion for primary bone marrow issue with no alarming symptoms or exam findings, decrease in all cell lines with already an improvement. recommend holding MTX, repeating CBC with rheum in 1 week and if counts normalized can resume at
correct dose vs. continue to hold until recovered. if cytopenias do not resolve despite several weeks of holding MTX then can see hematology outpt
thank you for consultation. we will continue to follow peripherally with monitoring for ongoing count recovery. contact team with questions.
Subjective/Objective
Subjective/Objective
mouth sores persist
Vital Signs:
Vital Signs
Temp Pulse Resp BP Pulse Ox
98.2 F 70 18 118/74 100
12/08/23 08:00 12/08/23 08:00 12/08/23 08:00 12/08/23 08:00 12/08/23 08:00
Lab Results:
Laboratory Data
WBC 2.0 10^3/uL (4.8-10.8) L* 12/08/23 09:17
Hgb 8.0 g/dL (12.0-16.0) L 12/08/23 09:17
Plt Count 92 10^3/uL (130-400) L D 12/08/23 09:17
eGFR > 60.00 12/08/23 05:57
Orders
Orders
CSF daily x 3 with CBC
[2023-12-08 15:30] VITALS: BP 129/67
[2023-12-08] MEDS: GRANIX 480 MCG SC (15:56)
[2023-12-08] MEDS: ROWASA, CANASA SUPPOSITORY RECTAL (22:02)
[2023-12-08 22:09] LABS: HIV Combo Negative (Negative)
[2023-12-08 22:42] LABS: Methotrexate, Sensitive <0.05 umol/L
[2023-12-08 23:17] VITALS: BP 129/56
[2023-12-09 00:03] LABS: Hepatitis B Surface Antigen Negative (Negative)
[2023-12-09 00:21] LABS: Hepatitis B Core Ab, Total Negative (Negative); Hepatitis B Surface Antibody Negative
[2023-12-09] MEDS: WELLCOVORIN 1.5 MG IV ×4 (03:40→21:31)
[2023-12-09] MEDS: ROWASA, CANASA SUPPOSITORY RECTAL ×2 (03:57→21:38)
[2023-12-09 06:15] LABS: Hematocrit 25.5 % (37.0-47.0); Hemoglobin 8.3 g/dL (12.0-16.0); Mean Corp Hgb Conc. 32.5 g/dL (33.0-37.0); Mean Corpuscular Hgb 26.3 pg (27.0-31.0); Mean Corpuscular Volume 80.7 fL (81.0-99.0); Red Blood Cell Count 3.16 10^6/uL (4.20-5.40); Red Cell Dist. Width 15.5 % (11.5-14.5)
[2023-12-09 06:46] LABS: White Blood Cell Count 1.9 10^3/uL (4.8-10.8)
[2023-12-09 07:53] VITALS: BP 115/55
[2023-12-09 08:07] LABS: Platelet Count 56 10^3/uL (130-400)
[2023-12-09 08:08] LABS: Band Neutrophils 1 % (0-3); Lymphocytes 58 % (20-51); Mean Platelet Volume 9.6 fL (7.4-10.4); Monocytes 0 % (2-9); Segmented Neutrophils 34 % (42-75)
[2023-12-09 08:09] LABS: Anisocytosis 1+; Eosinophils 7 % (0-6); Normal RBC Morphology No; Platelets Checked Yes
[2023-12-09 08:10] LABS: Hypersegmented Neutrophil 1+; Ovalocytes 1+; Polychromasia Slight; Total Cells Counted 100
[2023-12-09 08:11] LABS: Absolute Neutrophils -Man Diff 0.6 10^3/uL (1.4-6.5)
[2023-12-09] MEDS: DELTASONE 5 MG PO (08:51)
[2023-12-09] MEDS: FOLTX 1 TABLET PO (08:51)
[2023-12-09] MEDS: PROTONIX 40 MG PO (08:51)
[2023-12-09] MEDS: GRANIX 480 MCG SC (08:51)
[2023-12-09] MEDS: D5/0.9% SODIUM CHLORIDE 1000 IV (12:33)
--- NOTE | 2023-12-09 14:01 | W.PN.HOSP.TC ---
Today's Communication/Plan
-
see note
Assessment / Plan
Assessment / Plan
1. Methotrexate toxicity
Acute stomatitis
Sore throat
Pancytopenia
-Acute onset of mouth ulcerations/sore throat. Patient afebrile
-CBC showing leukopenia with WBC 1.3K, segmented neutrophil 30% and lymphocytes 60% no atypical lymphocytes reported.
- stated of patient getting methotrexate 2.5 mg x3 tablets twice daily for last 7-8 days ~ 110-120 mg total dose
-Likely have component of methotrexate toxicity related stomatitis.
-Starting on leucovorin 15 mg every 6 hours after discussion with pharmacy
-Strep throat cs neg and throat culture pending. COVID-negative.
-Ordering Magic mouthwash for symptomatic care
-Methotrexate level undetectable today. Admission check MTX level also below lower cutoff
-Hepatitis/HIV negative. EBV/RF/anti-CCP/ANCA pending
-Have RA and felty syndrom could also explain pancytopenia
-s/p GCSF inj on 12/07 12/08 - ANC 0.6 , continue follow
-Monitor for any temp > 100.5 F - will need to be started on cefepime
2. Rheumatoid arthritis
-Continue prednisone 5 mg daily
-Hold Plaquenil/methotrexate for now
3. GERD
-maintain on omeprazole
4. Hemorrhagic blister on lip
-From worsening thrombocytopenia
-Supportive care/application of vaseline-barrier lotion.
DVT PPX -scd
Full code
Total time psen
Anticipated Discharge: 24 - 48 hours
Subjective/Interval History
-
Date of Service: December 09, 2023
Some oozing from lips
afebrile in night
no bleeding diathesis
Objective Data
-
Labs:
Laboratory Results
12/09/23
06:03
WBC 1.9 L*
Hgb 8.3 L
Hct 25.5 L
Plt Count 56 L D
Vital Signs:
Vital Signs
Temp Pulse Resp BP Pulse Ox
98.4 F 73 16 115/55 95
12/09/23 07:53 12/09/23 07:53 12/09/23 07:53 12/09/23 07:53 12/09/23 07:53
I&O
12/08/23 12/09/23 12/10/23
06:59 06:59 06:59
Intake Total 600 / 600 420 / 420
Balance 600 / 600 420 / 420
Review of Systems
-
Respiratory: Reports No Symptoms
Cardiac: Reports No Symptoms
Abdomen/GI: Reports No Symptoms
Physical Exam
-
General: No Apparent Distress and Comfortable
HEENT: Other (hemorrhagic blister on lower lips); Negative Oxygen
Cardiac: Regular Rhythm and S1/S2; Negative Murmur or Rub
GI: Soft, Nontender, Nondistended and Normal Bowel Sounds
Musculoskeletal: No Edema
Neuro: Awake, Alert, Oriented, No Motor Deficits and Nonfocal/Grossly Intact
Psych: Calm
[2023-12-09 15:51] VITALS: BP 113/57
[2023-12-09 23:55] VITALS: BP 124/55
[2023-12-10 00:33] VITALS: BP 124/55
[2023-12-10] MEDS: D5/0.9% SODIUM CHLORIDE 1000 IV ×2 (03:58→14:28)
[2023-12-10] MEDS: WELLCOVORIN 1.5 MG IV ×4 (03:59→21:16)
[2023-12-10 06:43] LABS: % Eosinophils 25.8 % (0-6); % Lymphocytes 61.9 % (20.5-51.1); % Monocytes 2.1 % (1.7-9.3); % Neutrophils 9.2 % (42.2-75.2); Absolute Eosinophils 0.3 10^3/uL (0-0.7); Absolute Lymphocytes 0.6 10^3/uL (1.2-3.4); Hematocrit 24.7 % (37.0-47.0); Hemoglobin 7.8 g/dL (12.0-16.0); Mean Corp Hgb Conc. 31.6 g/dL (33.0-37.0); Mean Corpuscular Hgb 25.8 pg (27.0-31.0); Mean Corpuscular Volume 81.8 fL (81.0-99.0); Nucleated Red Blood Cells % 0 %; Red Blood Cell Count 3.02 10^6/uL (4.20-5.40); Red Cell Dist. Width 15.3 % (11.5-14.5)
[2023-12-10 07:30] VITALS: BP 140/66
[2023-12-10] MEDS: FOLTX 1 TABLET PO (07:47)
[2023-12-10] MEDS: PROTONIX 40 MG PO (07:47)
[2023-12-10] MEDS: DELTASONE 5 MG PO (07:47)
[2023-12-10] MEDS: GRANIX 480 MCG SC (07:47)
[2023-12-10 09:44] LABS: Mean Platelet Volume 10.5 fL (7.4-10.4); Platelet Count 32 10^3/uL (130-400)
[2023-12-10 09:47] LABS: Absolute Neutrophils 0.1 10^3/uL (1.4-6.5)
--- NOTE | 2023-12-10 10:45 | CM ---
Chart reviewed and sabino is for discharge to home no needs when stable, patient lives with her spouse. Patient has declined the need for visiting nurses after discharge.
Plan; Home with spouse no needs.
--- NOTE | 2023-12-10 12:21 | W.PN.HOSP.TC ---
Today's Communication/Plan
-
Monitor vital signs and see plan
Continue Granix
Add Zosyn
ENT evaluation
Assessment / Plan
Assessment / Plan
Methotrexate toxicity
Acute stomatitis with epidermal necrosis
Sore throat
Pancytopenia
-Acute onset of mouth ulcerations/sore throat. Patient afebrile
-CBC showing severe pancytopenia
- stated of patient getting methotrexate 2.5 mg x3 tablets twice daily for last 7-8 days ~ 110-120 mg total dose
-Likely have component of methotrexate toxicity related stomatitis.
-Starting on leucovorin 15 mg every 6 hours after discussion with pharmacy
-Strep throat cs neg and throat culture neg. COVID-negative.
-Ordering Magic mouthwash for symptomatic care
-Methotrexate level undetectable. Admission check MTX level also below lower cutoff
-Hepatitis/HIV negative. EBV/RF/anti-CCP/ANCA pending
-s/p GCSF inj on 12/07 5; 5/ - ANC 0.1 , continue follow
-Monitor for fever; start zosyn for ppx
Discussed with hematology; rec ENT evaluation
Rheumatoid arthritis
-Continue prednisone 5 mg daily
-Hold Plaquenil/methotrexate for now
GERD
-maintain on omeprazole
Hemorrhagic blister on lip
-From worsening thrombocytopenia and MTX induced epidermal necrosis
wound care
DVT PPX -scd
Full code
General: No Apparent Distress and Comfortable
HEENT: Negative Oxygen
Respiratory: Other (Lip ulcers)
Cardiac: Regular Rhythm and S1/S2; Negative Murmur or Rub
GI: Soft, Nontender, Nondistended and Normal Bowel Sounds
Musculoskeletal: No Edema
Neuro: Awake, Alert, Oriented, No Motor Deficits and Nonfocal/Grossly Intact
Psych: Calm
I spent a total of 52 minutes with the patient or on the floor. More than 50% of this time involved counseling and coordination of care.
Anticipated Discharge: > 48 hours
Subjective/Interval History
-
Date of Service: December 10, 2023
Objective Data
-
Labs:
Laboratory Results
12/10/23
06:18
WBC 1.0 L*
Hgb 7.8 L
Hct 24.7 L
Plt Count 32 L D
Vital Signs:
Vital Signs
Temp Pulse Resp BP Pulse Ox
99.6 F 86 16 140/66 96
12/10/23 11:15 12/10/23 07:30 12/10/23 07:30 12/10/23 07:30 12/10/23 07:30
I&O
12/09/23 12/10/23 12/11/23
06:59 06:59 06:59
Intake Total 420 / 420 1720 / 1720
Balance 420 / 420 1720 / 1720
[2023-12-10] MEDS: ZOSYN 50 IV ×3 (13:00→23:20)
--- NOTE | 2023-12-10 13:54 | CON.MD ---
Consultation - Medical
-
Chief complaint: Stomatitis
History of present illness: this very pleasant 73-year-old woman presents with a history of rheumatoid arthritis for which she is on methotrexate. She thinks she may have taken too much recently and presents with low white count and stomatitis.
She has ulcerations of her lips. The patient has not had problems with methotrexate in the past. She is otherwise fairly healthy. She does not have a history of allergic problems. I was asked to see the patient regarding the stomatitis.
Past medical history:
Allergies: No known drug allergies
Home medications: Ascorbic acid 1000 mg a day
Cholecalciferol 50 mcg p.o. daily
Folic acid 1 mg p.o. daily
Shanika 550 mg p.o. daily hydroxychloroquine 200 mg p.o. daily
Magnesium 250 mg p.o. daily
Mesalamine 1 g p. R. Nightly
Mesalamine 3.6 g p.o. daily
Methotrexate
Centrum Silver vitamin 1 tablet p.o. daily
Naproxen sodium 440 mg p.o. twice daily as needed
Fish oil 2 capsules p.o. daily
Omeprazole 20 mg p.o. daily prednisone 5 mg p.o. daily
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
Family history: Asked and noncontributory hospitalizations: The patient is currently hospitalized for severe stomatitis and neutropenia
Review of systems: Sore throat, sore lips, dysphagia, acid reflux, negative for respiratory distress,
Physical examination:
Head: Atraumatic and normocephalic
Eyes: Extraocular movements are intact, pupils are equal and reactive to light
Ears: Clear without infection
Nose: Mucosa looks fairly normal
Mouth: The patient has ulcerations of the lips as well as the tongue and the soft palate.
Neck: Supple without adenopathy
Cranial nerves II through XII are intact
Thyroid gland: Normal to palpation
Salivary glands: Normal to palpation
Hypopharynx/larynx: Unable to adequately visualize without scope
Procedure: Flexible laryngoscopy
The patient's larynx and hypopharynx were evaluated with a flexible scope through the mouth. Good visualization was achieved. She does not have ulcerations in the area of the larynx. There are none in the hypopharynx she does have lesions of the
mouth and oropharynx. Lips are also affected.
Impression: This patient appears to be experiencing mucositis/stomatitis after an unintentional overdose of methotrexate. The patient is in pretty good spirits and spite of the fact that she is in some considerable discomfort/pain. She can be
treated with intravenous fluids and pain medication for now. I reassured her that this problem usually resolves over the course of a couple of weeks. I will plan on seeing the patient back as needed.
--- NOTE | 2023-12-10 14:53 | WOUNDNOTE ---
[facility] RN note: Patient admitted with stomatitis, sore throat, neutropenia, dysphagia possibly r/t accidental overdose of her Methotrexate.
See H&P for complete history.
PMH: RA, pancytopenia.
Wound Location and type/assessment: Patient admitted with: Lower dc black crusted ulcers. Patient seen by ENT whose report states should resolve on it's own in a couple of weeks. Patient tolerating ensure drink.
Appetite: on regular diet. She is not tolerating solids yet.
Pressure redistribution devices in place: [employer] air bed. Patient is mobile.
Plan: saline moistened gauze soak applied to lower lip x 3 minutes, then mouth moisturizer applied. Mouth moisturizer packets given to patient with instruction. Discussed with LESLIE Aguayo.
Care plan to be updated and will follow as needed. Patient can follow up with ENT as needed.
[2023-12-10 15:32] VITALS: BP 129/64
[2023-12-10 16:26] LABS: Rheumatoid Agglutinin Positive (<10 IU)
[2023-12-10 16:50] LABS: Rheumatoid Agg. Semi-quant 128 IU
[2023-12-10 17:31] LABS: EBV-VCA IgM Antibodies <10.0 U/mL (0.0-43.9)
--- NOTE | 2023-12-10 18:45 | W.PN.ONC2 ---
Today's Communication / Plan
-
Monitoring counts, mucositis/stomatitis representing MTX toxicity.
Impression
Impression
Rheumatoid arthritis on Methotrexate
Acute neutropenia
Anemia (baseline 12-14)
Mild thrombocytopenia (baseline 230-340)
Mouth ulcers
Sore throat
Plan
Plan
- pt presenting with stomatitis, new leukopenia and anemia in the setting of accidental MTX overdose ( was giving MTX daily rather than weekly.)
- folate normal. continue folic acid 1 mg daily
- Cr normal
- agree with aggressive hydration, receiving leucovorin
- low suspicion for primary bone marrow issue with no alarming symptoms or exam findings, decrease in all cell lines with already an improvement. recommend holding MTX, repeating CBC with rheum in 1 week and if counts normalized can resume at
correct dose vs. continue to hold until recovered. if cytopenias do not resolve despite several weeks of holding MTX then can see hematology outpt
Subjective/Objective
Chief Complaint
Heme/Onc follow up of methotrexate toxicity and pancytopenia
Subjective
Pt with necrotic appearing lip, severe mucositis, difficulty swallowing.
Vital Signs:
Vital Signs
Temp Pulse Resp BP Pulse Ox
98.2 F 70 17 129/64 96
12/10/23 15:32 12/10/23 15:32 12/10/23 15:32 12/10/23 15:32 12/10/23 15:32
Lab Results:
Laboratory Data
WBC 1.0 10^3/uL (4.8-10.8) L* 12/10/23 06:18
Hgb 7.8 g/dL (12.0-16.0) L 12/10/23 06:18
Plt Count 32 10^3/uL (130-400) L D 12/10/23 06:18
eGFR > 60.00 12/08/23 05:57
Physical Exam
Awake, alert
HEENT: Other (severe mucositis, necrotic-appearing lower lip); No Jaundice
Cardiology: Normal Sinus Rhythm, S1 and S2
Pulmonary: Clear; No Wheezes or Rales
GI: Soft and Normal Bowel Sounds; No Spleenomegaly
Extremities: No C/C/E
Neuro: Non Focal
Review of Systems
Review of Systems
Constitutional: Reports Fatigue; Denies Fever
Head: Reports Sore Throat
Respiratory: Denies Dyspnea or Cough
Cardiovascular: Denies Chest Pain or Palpitations
Gastrointestinal: Denies Nausea/Vomiting or Diarrhea
Genitourinary: Denies Hematuria
Skin: Denies Rash or Pruritis
Neurological: Denies Headache or Numbness
Hem/Lymphatic: Reports Easy Bruising; Denies Night Sweats
[2023-12-10] MEDS: ROWASA, CANASA SUPPOSITORY RECTAL (21:16)
[2023-12-10 23:00] VITALS: BP 139/77
[2023-12-11 02:25] LABS: CCP Antibody IgG/IgA 172 Units (0-19)
[2023-12-11] MEDS: WELLCOVORIN 1.5 MG IV ×4 (04:59→22:08)
[2023-12-11] MEDS: ZOSYN 50 IV ×4 (04:59→23:40)
[2023-12-11 06:37] LABS: % Eosinophils 30.4 % (0-6); % Lymphocytes 65.2 % (20.5-51.1); % Monocytes 2.2 % (1.7-9.3); % Neutrophils 2.2 % (42.2-75.2); Absolute Eosinophils 0.3 10^3/uL (0-0.7); Absolute Lymphocytes 0.6 10^3/uL (1.2-3.4); Hematocrit 22.9 % (37.0-47.0); Hemoglobin 7.4 g/dL (12.0-16.0); Mean Corp Hgb Conc. 32.3 g/dL (33.0-37.0); Mean Corpuscular Hgb 26.2 pg (27.0-31.0); Mean Corpuscular Volume 81.2 fL (81.0-99.0); Nucleated Red Blood Cells % 0 %; Red Blood Cell Count 2.82 10^6/uL (4.20-5.40); Red Cell Dist. Width 15.1 % (11.5-14.5)
[2023-12-11 06:41] LABS: White Blood Cell Count 0.9 10^3/uL (4.8-10.8)
[2023-12-11 07:00] LABS: Blood Urea Nitrogen 9 mg/dl (7-17); Calcium 9.1 mg/dl (8.4-10.2); Carbon Dioxide 19 mmol/L (22-30); Chloride 108 mmol/L (98-107); Estimated Creatinine Clearance 60 ml/min; Glucose 116 mg/dl (70-99); Potassium 2.8 mmol/L (3.5-5.1); Sodium 134 mmol/L (135-145); eGFR > 60.00
[2023-12-11] MEDS: PROTONIX 40 MG PO (07:38)
[2023-12-11] MEDS: DELTASONE 5 MG PO (07:38)
[2023-12-11] MEDS: FOLTX 1 TABLET PO (07:38)
[2023-12-11 07:45] LABS: Platelet Count 14 10^3/uL (130-400)
[2023-12-11 07:49] VITALS: BP 115/57
[2023-12-11] MEDS: GRANIX 480 MCG SC (09:28)
[2023-12-11] MEDS: KCL 270 MEQ IV (09:28)
[2023-12-11] MEDS: KCL ELIXIR 40 MEQ PO (09:29)
--- NOTE | 2023-12-11 11:26 | CM ---
Chart reviewed home with spouse when stable, sabino has denied the need for visiting nurses at discharge.
Plan; Home with spouse when stable.
--- NOTE | 2023-12-11 11:35 | W.PN.ONC ---
Today's Communication / Plan
-
Agree w/ platelet transfusion today
Continue leucovorin q6hr (x10 days or until CBC recovery, whichever comes first)
Continue to hold MTX, future dosing per rheumatology
Monitor CBC daily
Daily folic acid
Impression
Impression
Pancytopenia from accidental MTX overdose
Rheumatoid arthritis on Methotrexate
Mouth ulcers
Sore throat
Plan
Plan
Agree w/ platelet transfusion today
Continue leucovorin q6hr (x10 days or until CBC recovery, whichever comes first)
Continue to hold MTX, future dosing per rheumatology
Monitor CBC daily
Daily folic acid
Subjective/Objective
Subjective/Objective
slight bleeding from lip ulcers, no bleeding elsewhere
Vital Signs:
Vital Signs
Temp Pulse Resp BP Pulse Ox
98.6 F 79 18 115/57 97
12/11/23 07:49 12/11/23 07:49 12/11/23 07:49 12/11/23 07:49 12/11/23 07:49
Lab Results:
Laboratory Data
WBC 0.9 10^3/uL (4.8-10.8) L* 12/11/23 05:43
Hgb 7.4 g/dL (12.0-16.0) L 12/11/23 05:43
Plt Count 14 10^3/uL (130-400) L* D 12/11/23 05:43
eGFR > 60.00 12/11/23 05:43
--- NOTE | 2023-12-11 12:36 | W.PN.HOSP.TC ---
Today's Communication/Plan
-
Monitor vital signs and see plan
Monitor pancytopenia
Transfuse platelets today
monitor hgb
Replete potassium
Assessment / Plan
Assessment / Plan
Methotrexate toxicity
Acute stomatitis with epidermal necrosis
Sore throat
Pancytopenia
-Acute onset of mouth ulcerations/sore throat. Patient afebrile
-CBC showing severe pancytopenia
- stated of patient getting methotrexate 2.5 mg x3 tablets twice daily for last 7-8 days ~ 110-120 mg total dose
-Likely have component of methotrexate toxicity related stomatitis.
-Starting on leucovorin 15 mg every 6 hours after discussion with pharmacy
-Strep throat cs neg and throat culture neg. COVID-negative.
-Ordering Magic mouthwash for symptomatic care
-Methotrexate level undetectable. Admission check MTX level also below lower cutoff
-Hepatitis/HIV negative. EBV/RF/anti-CCP/ANCA pending
-s/p GCSF inj on 12/07 5; 5/ - ANC 0.1 , continue follow
-Monitor for fever; start zosyn for ppx
Discussed with hematology; rec ENT evaluation. Evaluated by ENT. Status post flexible scope through the mouth. Does not appear to have ulceration in the area of the larynx.
Platelets now 18, consent in chart. Transfuse platelets today
Rheumatoid arthritis
-Continue prednisone 5 mg daily
-Hold Plaquenil/methotrexate for now
Hypokalemia
Replete
Mild hyponatremia
Monitor
GERD
-maintain on omeprazole
Hemorrhagic blister on lip
-From worsening thrombocytopenia and MTX induced epidermal necrosis
wound care
DVT PPX -scd
Full code
General: No Apparent Distress and Comfortable
HEENT: Negative Oxygen
Respiratory: Other (Lip ulcers)
Cardiac: Regular Rhythm and S1/S2; Negative Murmur or Rub
GI: Soft, Nontender, Nondistended and Normal Bowel Sounds
Musculoskeletal: No Edema
Neuro: Awake, Alert, Oriented, No Motor Deficits and Nonfocal/Grossly Intact
Psych: Calm
I spent a total of 53 minutes with the patient or on the floor. More than 50% of this time involved counseling and coordination of care.
Anticipated Discharge: > 48 hours
Subjective/Interval History
-
Date of Service: December 11, 2023
Denies nausea
Objective Data
-
Labs:
Laboratory Results
12/11/23
05:43
WBC 0.9 L*
Hgb 7.4 L
Hct 22.9 L
Plt Count 14 L* D
Sodium 134 L
Potassium 2.8 L
Chloride 108 H
Carbon Dioxide 19 L
BUN 9
Creatinine 0.7
Glucose 116 H
Calcium 9.1
Vital Signs:
Vital Signs
Temp Pulse Resp BP Pulse Ox
98.6 F 79 18 115/57 97
12/11/23 07:49 12/11/23 07:49 12/11/23 07:49 12/11/23 07:49 12/11/23 07:49
I&O
12/10/23 12/11/23 12/12/23
06:59 06:59 06:59
Intake Total 1720 / 1720
Balance 1720 / 1720
[2023-12-11] MEDS: NSS 1000 IV (14:13)
[2023-12-11 15:17] VITALS: BMI 22.1
[2023-12-11 15:24] VITALS: BP 113/56
[2023-12-11] MEDS: TYLENOL 650 MG PO (16:29)
[2023-12-11 17:28] VITALS: BP 123/62
[2023-12-11 17:44] VITALS: BP 119/60
[2023-12-11 19:34] VITALS: BP 136/74
[2023-12-11] MEDS: ROWASA, CANASA SUPPOSITORY RECTAL (20:33)
[2023-12-11 23:31] VITALS: BP 118/59
[2023-12-12] MEDS: WELLCOVORIN 1.5 MG IV ×4 (03:30→21:45)
[2023-12-12] MEDS: ZOSYN 50 IV ×4 (05:10→23:38)
[2023-12-12] MEDS: TYLENOL 650 MG PO ×2 (05:11→17:22)
[2023-12-12] MEDS: NSS 1000 IV ×2 (05:46→18:40)
[2023-12-12 06:02] LABS: Hematocrit 24.5 % (37.0-47.0); Hemoglobin 8.1 g/dL (12.0-16.0); Mean Corp Hgb Conc. 33.1 g/dL (33.0-37.0); Mean Corpuscular Hgb 26.4 pg (27.0-31.0); Mean Corpuscular Volume 79.8 fL (81.0-99.0); Nucleated Red Blood Cells % 0 %; Red Blood Cell Count 3.07 10^6/uL (4.20-5.40); Red Cell Dist. Width 15.3 % (11.5-14.5)
[2023-12-12 06:21] LABS: Blood Urea Nitrogen 8 mg/dl (7-17); Calcium 9.7 mg/dl (8.4-10.2); Carbon Dioxide 18 mmol/L (22-30); Chloride 111 mmol/L (98-107); Estimated Creatinine Clearance 60 ml/min; Glucose 97 mg/dl (70-99); Potassium 3.5 mmol/L (3.5-5.1); Sodium 139 mmol/L (135-145); eGFR > 60.00
[2023-12-12 06:29] LABS: Platelet Count 20 10^3/uL (130-400)
[2023-12-12 07:01] LABS: Myeloperoxidase Antibody 9 AU/mL (0-19); Serine Protease-3, IgG 31 AU/mL (0-19)
[2023-12-12 07:58] LABS: Band Neutrophils 0 % (0-3); Eosinophils 26 % (0-6); Lymphocytes 70 % (20-51); Monocytes 2 % (2-9); Platelets Checked Yes; Segmented Neutrophils 2 % (42-75)
[2023-12-12 07:59] LABS: Anisocytosis 1+; Hypochromasia 1+; Ovalocytes Slight; Polychromasia Slight; Total Cells Counted 100
[2023-12-12 08:00] VITALS: BP 104/59
--- NOTE | 2023-12-12 08:03 | W.PN.ONC2 ---
Today's Communication / Plan
-
Patient is slowly improving.
CBC seems to have nadired.
Patient is on G-CSF.
Remains on IV leucovorin.
Anticipate still requires inpatient care.
Impression
Impression
Pancytopenia from accidental MTX overdose
Rheumatoid arthritis on Methotrexate
Mucositis
Sore throat
Plan
Plan
Continue leucovorin q6hr (x10 days or until CBC recovery, whichever comes first)
Continue to hold MTX, future dosing per rheumatology
Monitor CBC
Daily folic acid
Subjective/Objective
Chief Complaint
ACS heme-onc
Subjective
Patient feels that her mouth is improving. Is able to eat. Asking when she will be able to go home.
Vital Signs:
Vital Signs
Temp Pulse Resp BP Pulse Ox
97.6 F 82 20 118/59 95
12/11/23 23:31 12/11/23 23:31 12/11/23 23:31 12/11/23 23:31 12/11/23 23:31
Lab Results:
Laboratory Data
WBC 1.0 10^3/uL (4.8-10.8) L* 12/12/23 05:06
Hgb 8.1 g/dL (12.0-16.0) L 12/12/23 05:06
Plt Count 20 10^3/uL (130-400) L* D 12/12/23 05:06
eGFR > 60.00 12/12/23 05:06
Physical Exam
HEENT: Other (Significant mucositis)
Cardiology: S1 and S2
Pulmonary: Clear
[2023-12-12] MEDS: PROTONIX 40 MG PO (08:24)
[2023-12-12] MEDS: DELTASONE 5 MG PO (08:24)
[2023-12-12] MEDS: FOLTX 1 TABLET PO (08:24)
[2023-12-12 09:24] LABS: Normal RBC Morphology No
--- NOTE | 2023-12-12 11:17 | W.PN.HOSP.TC ---
Today's Communication/Plan
-
Monitor vital signs and see plan
Numbers slowly improving now
No transfusion today, continue to monitor
Hematology following
Continue with antibiotic for now
Assessment / Plan
Assessment / Plan
Methotrexate toxicity
Acute stomatitis with epidermal necrosis
Sore throat
Pancytopenia
-Acute onset of mouth ulcerations/sore throat. Patient afebrile
-CBC showing severe pancytopenia
- stated of patient getting methotrexate 2.5 mg x3 tablets twice daily for last 7-8 days ~ 110-120 mg total dose
-Likely have component of methotrexate toxicity related stomatitis.
-Starting on leucovorin 15 mg every 6 hours after discussion with pharmacy
-Strep throat cs neg and throat culture neg. COVID-negative.
-Ordering Magic mouthwash for symptomatic care
-Methotrexate level undetectable. Admission check MTX level also below lower cutoff
-Hepatitis/HIV negative. EBV neg
-cw GCSF
-Monitor for fever; started zosyn for ppx
Discussed with hematology; rec ENT evaluation. Evaluated by ENT. Status post flexible scope through the mouth. Does not appear to have ulceration in the area of the larynx.
Platelets 18 on 12/10, consent in chart. s/p transfusion plts 12/10
Rheumatoid arthritis
-Continue prednisone 5 mg daily
-Hold Plaquenil/methotrexate for now
Hypokalemia
improving
Mild hyponatremia
Monitor
GERD
-maintain on omeprazole
Hemorrhagic blister on lip
-From worsening thrombocytopenia and MTX induced epidermal necrosis
wound care
DVT PPX -scd
Full code
General: No Apparent Distress and Comfortable
HEENT: Negative Oxygen
Respiratory: Other (Lip ulcers)
Cardiac: Regular Rhythm and S1/S2; Negative Murmur or Rub
GI: Soft, Nontender, Nondistended and Normal Bowel Sounds
Musculoskeletal: No Edema
Neuro: Awake, Alert, Oriented, No Motor Deficits and Nonfocal/Grossly Intact
Psych: Calm
I spent a total of 52 minutes with the patient or on the floor. More than 50% of this time involved counseling and coordination of care.
Anticipated Discharge: 24 - 48 hours
Subjective/Interval History
-
Date of Service: December 12, 2023
Denies pain
Objective Data
-
Labs:
Laboratory Results
12/12/23
05:06
WBC 1.0 L*
Hgb 8.1 L
Hct 24.5 L
Plt Count 20 L* D
Sodium 139
Potassium 3.5
Chloride 111 H
Carbon Dioxide 18 L
BUN 8
Creatinine 0.7
Glucose 97
Calcium 9.7
Vital Signs:
Vital Signs
Temp Pulse Resp BP Pulse Ox
98.2 F 66 20 104/59 100
12/12/23 08:00 12/12/23 08:00 12/12/23 08:00 12/12/23 08:00 12/12/23 08:00
I&O
12/11/23 12/12/23 12/13/23
06:59 06:59 06:59
Intake Total 997 / 997
Balance 997 / 997
--- NOTE | 2023-12-12 11:29 | CM ---
Chart reviewed and plan is for patient to return to home with spouse when stable.
Plan; Home with spouse when stable.
[2023-12-12] MEDS: GRANIX 480 MCG SC (11:53)
[2023-12-12 16:00] VITALS: BP 124/57
[2023-12-12] MEDS: ROWASA, CANASA SUPPOSITORY 1000 MG RECTAL (21:26)
[2023-12-12 23:48] VITALS: BP 133/97
[2023-12-13] MEDS: WELLCOVORIN 1.5 MG IV ×4 (05:10→22:38)
[2023-12-13] MEDS: ZOSYN 50 IV ×4 (05:10→23:51)
[2023-12-13 07:09] LABS: Hematocrit 23.5 % (37.0-47.0); Hemoglobin 7.6 g/dL (12.0-16.0); Mean Corp Hgb Conc. 32.3 g/dL (33.0-37.0); Mean Corpuscular Hgb 26.1 pg (27.0-31.0); Mean Corpuscular Volume 80.8 fL (81.0-99.0); Mean Platelet Volume 12.2 fL (7.4-10.4); Platelet Count 70 10^3/uL (130-400); Red Blood Cell Count 2.91 10^6/uL (4.20-5.40); Red Cell Dist. Width 15.5 % (11.5-14.5)
[2023-12-13 07:18] LABS: White Blood Cell Count 2.2 10^3/uL (4.8-10.8)
[2023-12-13 07:31] LABS: Blood Urea Nitrogen 8 mg/dl (7-17); Calcium 9.4 mg/dl (8.4-10.2); Carbon Dioxide 17 mmol/L (22-30); Chloride 113 mmol/L (98-107); Estimated Creatinine Clearance 52 ml/min; Glucose 77 mg/dl (70-99); Sodium 141 mmol/L (135-145); eGFR > 60.00
[2023-12-13 07:35] VITALS: BP 123/60
[2023-12-13] MEDS: PROTONIX 40 MG PO (08:47)
[2023-12-13] MEDS: FOLTX 1 TABLET PO (08:47)
[2023-12-13] MEDS: DELTASONE 5 MG PO (08:48)
[2023-12-13] MEDS: GRANIX 480 MCG SC (08:48)
[2023-12-13] MEDS: KCL 40 MEQ PO ×2 (08:48→11:16)
--- NOTE | 2023-12-13 10:36 | W.PN.ONC ---
Today's Communication / Plan
-
Continue leucovorin q6hr x10 days or until CBC recovery i.e. platelet count>100, ANC>1000 and Hb>8.5 g/dL
Monitor reticulocyte count
Continue to hold MTX, future dosing per rheumatology
Monitor CBC
Daily folic acid
Impression
Impression
Pancytopenia from accidental MTX overdose
Rheumatoid arthritis on Methotrexate
Mucositis
Sore throat
Subjective/Objective
Subjective/Objective
Patient improving able to tolerate p.o. without pain
Vital Signs:
Vital Signs
Temp Pulse Resp BP Pulse Ox
97.8 F 74 18 123/60 96
12/13/23 07:35 12/13/23 07:35 12/13/23 07:35 12/13/23 07:35 12/13/23 07:35
Physical exam unchanged
Lab Results:
Laboratory Data
WBC 2.2 10^3/uL (4.8-10.8) L* 12/13/23 06:14
Hgb 7.6 g/dL (12.0-16.0) L 12/13/23 06:14
Plt Count 70 10^3/uL (130-400) L D 12/13/23 06:14
eGFR > 60.00 12/13/23 06:14
[2023-12-13 11:28] LABS: Band Neutrophils 5 % (0-3); Segmented Neutrophils 11 % (42-75)
[2023-12-13 11:29] LABS: Atypical Lymphocytes 4 %; Eosinophils 7 % (0-6); Lymphocytes 63 % (20-51); Monocytes 2 % (2-9)
[2023-12-13 11:30] LABS: Metamyelocytes 3 % (-); Myelocytes 4 % (-); Normal RBC Morphology No; Nucleated Red Blood Cells 7 (-); Platelets Checked YES
[2023-12-13 11:31] LABS: Anisocytosis Slight; Total Cells Counted 100
[2023-12-13 11:32] LABS: Absolute Neutrophils -Man Diff 0.3 10^3/uL (1.4-6.5)
--- NOTE | 2023-12-13 11:54 | W.PN.HOSP.TC ---
Today's Communication/Plan
-
Monitor vital signs and see plan
Counts slowly improving
No transfusion today
Replete potassium aggressively
Assessment / Plan
Assessment / Plan
Methotrexate toxicity
Acute stomatitis with epidermal necrosis
Sore throat
Pancytopenia
-Acute onset of mouth ulcerations/sore throat. Patient afebrile
-CBC showing severe pancytopenia
- stated of patient getting methotrexate 2.5 mg x3 tablets twice daily for last 7-8 days ~ 110-120 mg total dose
-Likely have component of methotrexate toxicity related stomatitis.
-Starting on leucovorin 15 mg every 6 hours after discussion with pharmacy
-Strep throat cs neg and throat culture neg. COVID-negative.
-Ordering Magic mouthwash for symptomatic care
-Methotrexate level undetectable. Admission check MTX level also below lower cutoff
-Hepatitis/HIV negative. EBV neg
-cw GCSF
-Monitor for fever; started zosyn for ppx
Discussed with hematology; rec ENT evaluation. Evaluated by ENT. Status post flexible scope through the mouth. Does not appear to have ulceration in the area of the larynx.
Platelets 18 on 12/10, s/p transfusion plts 12/10
Rheumatoid arthritis
-Continue prednisone 5 mg daily
-Hold Plaquenil/methotrexate for now
Hypokalemia
resolved
Mild hyponatremia
Monitor
GERD
-maintain on omeprazole
Hemorrhagic blister on lip
-From worsening thrombocytopenia and MTX induced epidermal necrosis
wound care
DVT PPX -scd
Full code
General: No Apparent Distress and Comfortable
HEENT: Negative Oxygen
Respiratory: Other (Lip ulcers)
Cardiac: Regular Rhythm and S1/S2; Negative Murmur or Rub
GI: Soft, Nontender, Nondistended and Normal Bowel Sounds
Musculoskeletal: No Edema
Neuro: Awake, Alert, Oriented, No Motor Deficits and Nonfocal/Grossly Intact
Psych: Calm
I spent a total of 51 minutes with the patient or on the floor. More than 50% of this time involved counseling and coordination of care.
Anticipated Discharge: 24 - 48 hours
Subjective/Interval History
-
Date of Service: December 13, 2023
denies pain
Objective Data
-
Labs:
Laboratory Results
12/13/23
06:14
WBC 2.2 L*
Hgb 7.6 L
Hct 23.5 L
Plt Count 70 L D
Sodium 141
Potassium 3.0 L
Chloride 113 H
Carbon Dioxide 17 L
BUN 8
Creatinine 0.8
Glucose 77
Calcium 9.4
Vital Signs:
Vital Signs
Temp Pulse Resp BP Pulse Ox
97.8 F 74 18 123/60 96
12/13/23 07:35 12/13/23 07:35 12/13/23 07:35 12/13/23 07:35 12/13/23 07:35
I&O
12/12/23 12/13/23 12/14/23
06:59 06:59 06:59
Intake Total 997 / 997 960 / 960
Balance 997 / 997 960 / 960
--- NOTE | 2023-12-13 13:12 | CM ---
Chart reviewed; DC 24 - 48 hours
Plan: discharge to home when stable
[2023-12-13 15:22] VITALS: BP 121/66
[2023-12-13] MEDS: ROWASA, CANASA SUPPOSITORY 1000 MG RECTAL (22:38)
[2023-12-13] MEDS: FIRST-MOUTHWASH BLM SUSPENSION 5 ML PO (22:49)
[2023-12-13 23:13] VITALS: BP 152/70
[2023-12-14] MEDS: WELLCOVORIN 1.5 MG IV ×2 (05:26→09:31)
[2023-12-14] MEDS: ZOSYN 50 IV ×2 (05:27→11:42)
[2023-12-14 07:21] LABS: Hematocrit 24.3 % (37.0-47.0); Hemoglobin 7.6 g/dL (12.0-16.0); Mean Corp Hgb Conc. 31.3 g/dL (33.0-37.0); Mean Corpuscular Volume 83.2 fL (81.0-99.0); Mean Platelet Volume 11.6 fL (7.4-10.4); Nucleated Red Blood Cells % 1.5 %; Red Blood Cell Count 2.92 10^6/uL (4.20-5.40); Red Cell Dist. Width 15.9 % (11.5-14.5); White Blood Cell Count 12.7 10^3/uL (4.8-10.8)
[2023-12-14 07:23] LABS: Platelet Count 200 10^3/uL (130-400)
[2023-12-14 07:44] VITALS: BP 137/69
[2023-12-14 07:48] LABS: Blood Urea Nitrogen 8 mg/dl (7-17); Calcium 9.8 mg/dl (8.4-10.2); Carbon Dioxide 20 mmol/L (22-30); Chloride 109 mmol/L (98-107); Estimated Creatinine Clearance 47 ml/min; Glucose 74 mg/dl (70-99); Sodium 135 mmol/L (135-145); eGFR > 60.00
[2023-12-14] MEDS: DELTASONE 5 MG PO (08:24)
[2023-12-14] MEDS: FOLTX 1 TABLET PO (08:24)
[2023-12-14] MEDS: PROTONIX 40 MG PO (08:24)
[2023-12-14] MEDS: FIRST-MOUTHWASH BLM SUSPENSION 5 ML PO (08:35)
[2023-12-14] MEDS: GRANIX SC (08:47)
--- NOTE | 2023-12-14 10:03 | CM ---
Chart reviewed and plan is to home with spouse when stable.
Plan; Home with spouse when stable.
--- NOTE | 2023-12-14 10:40 | W.PN.HOSP.TC ---
Addendum entered and electronically signed by Thony Singh MD 12/14/23 14:34:
Hgb improved to 8.8. Discussed with managing director [facility] Dr. Romero. Patient is okay to be discharged from their standpoint. DC leucovorin and Granix. No antibiotics needed patient to get repeat CBC with primary care provider next week. Discussed with
patient
Hold methotrexate on discharge
Time of discharge 38 minutes
Original Note:
Today's Communication/Plan
-
Monitor vital signs and see plan
WBC now improved; DC granix. plts also improving. repeat H/H today and if improving then could be dc today
hematology to see today
Assessment / Plan
Assessment / Plan
Methotrexate toxicity
Acute stomatitis with epidermal necrosis
Sore throat
Pancytopenia
-Acute onset of mouth ulcerations/sore throat. Patient afebrile
-CBC showing severe pancytopenia
- stated of patient getting methotrexate 2.5 mg x3 tablets twice daily for last 7-8 days ~ 110-120 mg total dose
-Likely have component of methotrexate toxicity related stomatitis.
-Starting on leucovorin 15 mg every 6 hours after discussion with pharmacy
-Strep throat cs neg and throat culture neg. COVID-negative.
-Ordering Magic mouthwash for symptomatic care
-Methotrexate level undetectable. Admission check MTX level also below lower cutoff
-Hepatitis/HIV negative. EBV neg
-cw GCSF
-Monitor for fever; started zosyn for ppx
Discussed with hematology; rec ENT evaluation. Evaluated by ENT. Status post flexible scope through the mouth. Does not appear to have ulceration in the area of the larynx.
Platelets 18 on 12/10, s/p transfusion plts 12/10
WBC now improved; DC granix. plts also improving. repeat H/H today and if improving then could be dc today
Rheumatoid arthritis
-Continue prednisone 5 mg daily
-Hold Plaquenil/methotrexate for now
Hypokalemia
resolved
Mild hyponatremia
Monitor
GERD
-maintain on omeprazole
Hemorrhagic blister on lip
-From worsening thrombocytopenia and MTX induced epidermal necrosis
wound care
DVT PPX -scd
Full code
General: No Apparent Distress and Comfortable
HEENT: Negative Oxygen
Respiratory: Other (Lip ulcers)
Cardiac: Regular Rhythm
GI: Nondistended
Musculoskeletal: No Edema
Neuro: Awake, Alert, Oriented, No Motor Deficits and Nonfocal/Grossly Intact
Psych: Calm
Anticipated Discharge: Within 24 hours
Subjective/Interval History
-
Date of Service: December 14, 2023
denies pain
Objective Data
-
Labs:
Laboratory Results
12/14/23 12/14/23
06:04 14:00
WBC 12.7 H
Hgb 7.6 L Pending
Hct 24.3 L Pending
Plt Count 200 D
Sodium 135
Potassium 4.0 D
Chloride 109 H
Carbon Dioxide 20 L
BUN 8
Creatinine 0.9
Glucose 74
Calcium 9.8
Vital Signs:
Vital Signs
Temp Pulse Resp BP Pulse Ox
98.3 F 95 18 137/69 97
12/14/23 07:44 12/14/23 07:44 12/14/23 07:44 12/14/23 07:44 12/14/23 07:44
I&O
12/13/23 12/14/23 12/15/23
06:59 06:59 06:59
Intake Total 960 / 960 960 / 960
Balance 960 / 960 960 / 960
[2023-12-14 11:24] LABS: Absolute Neutrophils -Man Diff 6.9 10^3/uL (1.4-6.5); Band Neutrophils 12 % (0-3); Lymphocytes 28 % (20-51); Monocytes 5 % (2-9); Segmented Neutrophils 43 % (42-75)
[2023-12-14 11:25] LABS: Atypical Lymphocytes 5 %; Eosinophils 4 % (0-6)
[2023-12-14 11:26] LABS: Myelocytes 3 % (-); Platelets Checked Yes
[2023-12-14 11:31] LABS: Microcytosis 1+
[2023-12-14 11:32] LABS: Hypochromasia 1+; Total Cells Counted 100
[2023-12-14 11:33] LABS: Normal RBC Morphology No
[2023-12-14 14:14] LABS: Hematocrit 26.2 % (37.0-47.0); Hemoglobin 8.8 g/dL (12.0-16.0)
--- NOTE | 2023-12-14 14:32 | W.DCSUMMARY ---
Discharge Summary
Discharge Data
Date of Admission: 12/06/23
Date of Discharge: 12/14/23
-
Pending Results: No
Hospital Course
73-year-old female with past medical history of rheumatoid arthritis came to the hospital with acute stomatitis with epidermal necrosis along with severe pancytopenia secondary to methotrexate toxicity from unintentional overdose. Patient was seen
by hematology throughout hospitalization. Patient was started on IV leucovorin and hematology started patient on Granix for severe neutropenia. Since patient was neutropenic she was also started on antibiotics. Multiple cultures were done which
were negative for infectious etiology. It was determined that patient's symptoms were likely secondary to methotrexate toxicity. On 12/11/2023 patient platelets dropped to 18 and given her mucosal bleeding she was given platelet transfusion. On
discharge patient instructed to not take methotrexate and to follow-up with rheumatology outpatient. For her mucosal bleeding she was also seen by ENT who performed flexible scope through the mouth however did not see any ulceration in the area of
the larynx. Patient pancytopenia over time continues to get better. Once her symptoms improved, she was then discharged home with instructions to follow-up with all her physicians outpatient.
Discharge Plan
-
Patient Disposition: Home (Routine Discharge)
Discharge Diagnosis/Procedures: Methotrexate toxicity
Acute stomatitis with epidermal necrosis
Severe pancytopenia
Rheumatoid arthritis
Hypokalemia
Hyponatremia
Diet: As tolerated
Activity: As tolerated
Driving Restrictions: As prior to admission
Bathing Restrictions: None
Blood Work: CBC next week with primary care provider
Activity Restrictions/Additional Instructions:
Lower lip local care-apply room temperature saline soaked non woven gauze or wash cloth for a few minutes, then apply mouth moisturizer gel 3 times a day and as needed for comfort.
Follow up with ENT as needed.
Please follow-up with your information consultant outpatient
Referrals:
Lata Cassidy DO [Active] -
Caryn Pro DO [Family Provider] - in less than 1 week
Ronnie Rhoades MD [Active] -
Prescriptions:
New
acetaminophen 325 mg Tablet
650 mg PO Q4HPRN PRN (Reason: mild pain/MOSQUEDA/temp> 100.4F) Qty: 0 0RF
Continued
ascorbic acid (vitamin C) [Vitamin C] 1,000 mg Tablet
1,000 mg PO DAILY
prednisone 5 mg Tablet
5 mg PO DAILY
omeprazole 20 mg Capsule,Delayed Release(Dr/Ec)
20 mg PO DAILY
folic acid 1 mg Tablet
1 mg PO DAILY
magnesium 250 mg Tablet
250 mg PO DAILY
hydroxychloroquine 200 mg Tablet
200 mg PO DAILY
[id number] Tablet
1 tab PO DAILY
linda (Zingiber officinalis) 550 mg Capsule
550 mg PO DAILY
mesalamine 1,000 mg Suppository
1 g [place] HS
mesalamine 1.2 gram Tablet,Delayed Release (Dr/Ec)
3.6 g PO DAILY
cholecalciferol (vitamin D3) 50 mcg (2,000 unit) Tablet
50 mcg PO DAILY
omega [id number] oil [Fish Oil] 1,000 mg (120 mg-180 mg) Capsule
2 cap PO DAILY
naproxen sodium [Aleve] 220 mg Tablet
440 mg PO BID PRN (Reason: mild pain)
Discontinued
methotrexate sodium 2.5 mg tablet
0 mg PO . SEE BELOW
Patient Comments:
12/06/2023, prescribed for pt. to take 6 tablets once a week; however, spouse states that pt. has been taking 3 tablets BID.
Discharge Orders:
Discharge Patient (As Directed); Ordered 12/14/23
Ordered By: Thony Singh
Discharge Date and Time
Discharge Date/Time: 12/14/23 15:23
Print Language: [place]
== END 2023-12-14 15:23 | disposition home or self-care (01) | DRG 158 ==
LOC: 4 WEST ACU 15:27
PROVIDERS: Internal Medicine Hematology & Oncology; Physician Assistant; ADMITTING PHYSICIAN Hospitalist; ATTENDING PHYSICIAN Internal Medicine; CONSULT PHYSICIAN Internal Medicine Hematology & Oncology; CONSULT PHYSICIAN Otolaryngology Facial Plastic Surgery; EMERGENCY PHYSICIAN Emergency Medicine; FAMILY PHYSICIAN Student in an Organized Health Care Education/Training Program
PROC: 0CJS8ZZ Inspection of Larynx, Via Natural or Artificial Opening Endoscopic (ICD-10-PCS; 2023-12-10)
PROC: 30233R1 Transfusion of Nonautologous Platelets into Peripheral Vein, Percutaneous Approach (ICD-10-PCS; 2023-12-11)
DX: K12.1 Other forms of stomatitis (principal); D61.818 Other pancytopenia; E87.1 Hypo-osmolality and hyponatremia; Z11.52 Encounter for screening for COVID-19; M06.9 Rheumatoid arthritis, unspecified; Z79.631 Long term (current) use of antimetabolite agent; T45.1X5A Adverse effect of antineoplastic and immunosuppressive drugs, initial encounter; K21.9 Gastro-esophageal reflux disease without esophagitis; E87.6 Hypokalemia
CPT/HCPCS: 70360; 80048; 80204; 82607; 82746; 83516; 83880; 84443; 85014; 85018; 85025; 86200; 86430; 86431; 86665; 86704; 86706; 86803; 86850; 86900; 86901; 87070; 87340; 87389; 87811; 87880; 96361; 96374; 96375; 99285; J1447; P9073

== ENCOUNTER → 2024-02-01 10:40 | Outpatient (REF) | payer OTHER, SELFPAY ==
[2024-02-01 12:25] LABS: % Basophils 0.5 % (0-2); % Eosinophils 1.3 % (0-6); % Immature Granulocytes 0.6 % (0-0.5); % Lymphocytes 10.1 % (20.5-51.1); % Monocytes 4.8 % (1.7-9.3); % Neutrophils 82.7 % (42.2-75.2); Absolute Basophils 0.1 10^3/uL (0-0.2); Absolute Eosinophils 0.1 10^3/uL (0-0.7); Absolute Immature Granulocytes 0.1 10^3/uL (0-0.05); Absolute Monocytes 0.5 10^3/uL (0.1-0.6); Hematocrit 39.1 % (37.0-47.0); Hemoglobin 12.1 g/dL (12.0-16.0); Mean Corp Hgb Conc. 30.9 g/dL (33.0-37.0); Mean Corpuscular Hgb 27.9 pg (27.0-31.0); Mean Corpuscular Volume 90.1 fL (81.0-99.0); Mean Platelet Volume 9.5 fL (7.4-10.4); Nucleated Red Blood Cells % 0 %; Platelet Count 255 10^3/uL (130-400); Red Blood Cell Count 4.34 10^6/uL (4.20-5.40); Red Cell Dist. Width 19.1 % (11.5-14.5); White Blood Cell Count 9.7 10^3/uL (4.8-10.8)
[2024-02-01 12:38] LABS: ALT (SGPT) 17 U/L (0-35); AST (SGOT) 22 U/L (14-36); Albumin 4.3 g/dl (3.5-5.0); Alkaline Phosphatase 144 U/L (38-126); Blood Urea Nitrogen 19 mg/dl (7-17); Calcium 10.3 mg/dl (8.4-10.2); Carbon Dioxide 20 mmol/L (22-30); Chloride 106 mmol/L (98-107); Glucose 115 mg/dl (70-99); Potassium 4.5 mmol/L (3.5-5.1); Sodium 137 mmol/L (135-145); Total Bilirubin 0.8 mg/dl (0.2-1.3); Total Protein 6.9 g/dl (6.3-8.2); eGFR > 60.00
[2024-02-01 12:58] LABS: Erythrocyte Sed Rate 14 mm/hour (0-20)
== END ==
LOC: REG 10:40
PROVIDERS: ATTENDING PHYSICIAN Internal Medicine; FAMILY PHYSICIAN Student in an Organized Health Care Education/Training Program
DX: M05.9 Rheumatoid arthritis with rheumatoid factor, unspecified (principal); Z51.81 Encounter for therapeutic drug level monitoring
CPT/HCPCS: 36415; 80053; 85025; 85652; 86140

== ENCOUNTER → 2024-04-29 10:55 | Outpatient (REF) | payer OTHER, SELFPAY ==
[2024-04-29 11:48] LABS: % Basophils 0.3 % (0-2); % Eosinophils 3.2 % (0-6); % Immature Granulocytes 0.3 % (0-0.5); % Lymphocytes 30.4 % (20.5-51.1); % Monocytes 7.3 % (1.7-9.3); % Neutrophils 58.5 % (42.2-75.2); Absolute Eosinophils 0.1 10^3/uL (0-0.7); Absolute Monocytes 0.2 10^3/uL (0.1-0.6); Absolute Neutrophils 1.8 10^3/uL (1.4-6.5); Hematocrit 41.9 % (37.0-47.0); Hemoglobin 13.5 g/dL (12.0-16.0); Mean Corp Hgb Conc. 32.2 g/dL (33.0-37.0); Mean Corpuscular Hgb 28.5 pg (27.0-31.0); Mean Corpuscular Volume 88.4 fL (81.0-99.0); Mean Platelet Volume 9.6 fL (7.4-10.4); Nucleated Red Blood Cells % 0 %; Platelet Count 180 10^3/uL (130-400); Red Blood Cell Count 4.74 10^6/uL (4.20-5.40); Red Cell Dist. Width 16.7 % (11.5-14.5); White Blood Cell Count 3.1 10^3/uL (4.8-10.8)
[2024-04-29 12:21] LABS: ALT (SGPT) 18 U/L (0-35); AST (SGOT) 26 U/L (14-36); Albumin 4.4 g/dl (3.5-5.0); Alkaline Phosphatase 126 U/L (38-126); Blood Urea Nitrogen 15 mg/dl (7-17); Carbon Dioxide 17 mmol/L (22-30); Chloride 105 mmol/L (98-107); Glucose 94 mg/dl (70-99); Potassium 4.7 mmol/L (3.5-5.1); Sodium 142 mmol/L (135-145); Total Bilirubin 0.3 mg/dl (0.2-1.3); eGFR > 60.00
[2024-04-29 12:24] LABS: Erythrocyte Sed Rate 25 mm/hour (0-20)
== END ==
LOC: REG 10:55
PROVIDERS: ATTENDING PHYSICIAN Internal Medicine
DX: M05.9 Rheumatoid arthritis with rheumatoid factor, unspecified (principal); Z51.81 Encounter for therapeutic drug level monitoring
CPT/HCPCS: 36415; 80053; 85025; 85652; 86140

== ENCOUNTER → 2024-05-06 15:24 | Outpatient (REF) | payer OTHER, SELFPAY | LOC: RAD 15:24 | PROVIDERS: ATTENDING PHYSICIAN Family Medicine; REFERRING PHYSICIAN Physician Assistant | DX: M05.9 Rheumatoid arthritis with rheumatoid factor, unspecified (principal); M19.041 Primary osteoarthritis, right hand | CPT/HCPCS: 73130 ==

== ENCOUNTER 2024-05-09 16:30 | Emergency (ER) | payer OTHER, SELFPAY ==
[2024-05-09 16:39] VITALS: BP 145/69
--- NOTE | 2024-05-09 19:40 | ED.GENMED ---
History of Present Illness
General
Chief Complaint: Cold/Flu/URI Symptoms
Source: patient
Time Seen by Provider: 05/09/24 19:23
History of Present Illness
History of Present Illness:
74-year-old female presents emergency room complaining of cough, generalized weakness. Patient states he had a positive COVID test a couple weeks ago. She feels a bit better since then but not completely back to normal. She denies any fever or
chills. She is tolerating oral intake. She is able to perform her daily activities without any limitations. She is not short of breath. Essentially the patient is concerned that her cough has not improved.
Past History
Past History
ED Past Medical History: GERD
ED Past Surgical History: None
Social History
Tobacco: Non-smoker
Personal:
Living: with family
Phy Exam
Physical Exam
Physical Exam:
General: Awake, Alert, Oriented X3. No acute distress.
Vitals: unremarkable
Head: Atraumatic
Eyes: Pupils equal, EOMI
Throat: Airway intact, no exudates
Neck: Trachea midline
Lungs: Clear and equal b/l
Heart: Regular rate, no murmurs
Abd: Soft, Nontender, No pulsatile mass
Neuro: Nonfocal
Skin: Warm, dry, no rash
Extremities: pulses equal b/l, no edema, stigmata of rheumatoid arthritis
Course
Orders/Labs/Results
Orders:
Orders
05/09/24 16:45
CR Chest - 2 Views Urgent
Comment:
Reason For Exam: cough
05/10/24 08:00
Doxycycline [Vibramycin] 100 mg PO DAILY
Vital Signs
Initial and Last Documented VS:
Initial Vital Signs
Temp Pulse Resp BP Pulse Ox
97.8 F 69 20 145/69 96
05/09/24 16:39 05/09/24 16:39 05/09/24 16:39 05/09/24 16:39 05/09/24 16:39
Last Documented Vital Signs
Temp Pulse Resp BP Pulse Ox
97.8 F 69 20 145/69 96
05/09/24 16:39 05/09/24 16:39 05/09/24 16:39 05/09/24 16:39 05/09/24 16:39
MDM/Problems Addressed
Differential Diagnosis Includes:
Persistent cough and COVID, acute bronchitis, pneumonia
MDM/Problems Addressed:
Chest x-ray shows no acute infiltrate. Patient does take methotrexate and so may have some level of immunocompromise state. She looks quite stable but we will cover with Doxy for potential secondary bacterial bronchitis.
Chronic conditions affecting care: Other (Rheumatoid arthritis)
*Radiology
Radiology exam reviewed: preliminary read by ED provider (no acute abnormalities noted by my review of the chest x-ray)
*Pulse Oximetry
Patient hypoxic: no
*Critical Care Note
Total Time (30-74mins, 75-104mins- exclusive of procedures): Not Applicable
ED Attending Note
-
Portions of this chart may have been created with voice recognition software.� Occasional wrong word or��sound alike� substitutions may have occurred due to the inherent limitations of voice recognition software.
Discharge Plan
Departure
Patient Disposition: Home (Routine Discharge)
Date of Disposition: 05/09/24
Time of Disposition: 19:44
Patient with high blood pressure during this ER visit?: Yes
Condition: Good
Discharge Problem:
Acute bronchitis
Instructions: Acute Bronchitis, Adult (DC)
Prescriptions:
New
doxycycline hyclate 100 mg tablet
100 mg PO BID Qty: 14 0RF
No Action
ascorbic acid (vitamin C) [Vitamin C] 1,000 mg Tablet
1,000 mg PO DAILY
prednisone 5 mg Tablet
5 mg PO DAILY
omeprazole 20 mg Capsule,Delayed Release(Dr/Ec)
20 mg PO DAILY
folic acid 1 mg Tablet
1 mg PO DAILY
magnesium 250 mg Tablet
250 mg PO DAILY
hydroxychloroquine 200 mg Tablet
200 mg PO DAILY
eugotdigxxer-mdwgpyme-culwty Tablet
1 tab PO DAILY
linda (Zingiber officinalis) 550 mg Capsule
550 mg PO DAILY
mesalamine 1,000 mg Suppository
1 g [place] HS
mesalamine 1.2 gram Tablet,Delayed Release (Dr/Ec)
3.6 g PO DAILY
cholecalciferol (vitamin D3) 50 mcg (2,000 unit) Tablet
50 mcg PO DAILY
omega 4-obl-zed-fish oil [Fish Oil] 1,000 mg (120 mg-180 mg) Capsule
2 cap PO DAILY
naproxen sodium [Aleve] 220 mg Tablet
440 mg PO BID PRN (Reason: mild pain)
acetaminophen 325 mg Tablet
650 mg PO Q4HPRN PRN (Reason: mild pain/MOSQUEDA/temp> 100.4F) Qty: 0 0RF
Interventions
Interventions:
*Risk Screen - Suicide Last Done: 05/09/24 16:39
*General Assessment Last Done: 05/09/24 16:39
*Neglect/Abuse Screening Last Done: 05/09/24 16:39
ED- Fall Risk Assessment Last Done: 05/09/24 19:29
ED- Pulmonary Assessment Last Done: 05/09/24 19:29
Discharge Date and Time
Print Language: PAKIST[place]
[2024-05-09] MEDS: VIBRAMYCIN 100 MG PO (19:47)
[2024-05-09 20:00] VITALS: BP 138/70
== END 2024-05-09 20:10 | disposition home or self-care (01) ==
LOC: EMR 16:30
PROVIDERS: EMERGENCY PHYSICIAN Emergency Medicine; FAMILY PHYSICIAN Family Medicine
DX: J20.9 Acute bronchitis, unspecified (principal); R03.0 Elevated blood-pressure reading, without diagnosis of hypertension; M06.9 Rheumatoid arthritis, unspecified; K21.9 Gastro-esophageal reflux disease without esophagitis; Z86.16 Personal history of COVID-19
CPT/HCPCS: 99283; 71046

== ENCOUNTER → 2024-08-04 12:23 | Outpatient (REF) | payer OTHER, SELFPAY ==
[2024-08-04 13:17] LABS: % Basophils 0.6 % (0-2); % Eosinophils 1.8 % (0-6); % Immature Granulocytes 0.2 % (0-0.5); % Lymphocytes 17.6 % (20.5-51.1); % Monocytes 8.5 % (1.7-9.3); % Neutrophils 71.3 % (42.2-75.2); Absolute Eosinophils 0.1 10^3/uL (0-0.7); Absolute Monocytes 0.5 10^3/uL (0.1-0.6); Absolute Neutrophils 3.9 10^3/uL (1.4-6.5); Hemoglobin 12.5 g/dL (12.0-16.0); Mean Corp Hgb Conc. 32.1 g/dL (33.0-37.0); Mean Corpuscular Hgb 29.8 pg (27.0-31.0); Mean Corpuscular Volume 92.9 fL (81.0-99.0); Mean Platelet Volume 10.2 fL (7.4-10.4); Nucleated Red Blood Cells % 0 %; Platelet Count 221 10^3/uL (130-400); Red Cell Dist. Width 15.5 % (11.5-14.5); White Blood Cell Count 5.4 10^3/uL (4.8-10.8)
[2024-08-04 13:50] LABS: ALT (SGPT) 14 U/L (0-35); AST (SGOT) 20 U/L (14-36); Albumin 4.2 g/dl (3.5-5.0); Alkaline Phosphatase 135 U/L (38-126); Blood Urea Nitrogen 18 mg/dl (7-17); Calcium 10.1 mg/dl (8.4-10.2); Carbon Dioxide 24 mmol/L (22-30); Direct Bilirubin 0.1 mg/dl (0.0-0.4); GGTP 16 U/L (12-43); Glucose 97 mg/dl (70-99); Potassium 4.4 mmol/L (3.5-5.1); Sodium 134 mmol/L (135-145); Total Bilirubin 0.4 mg/dl (0.2-1.3); Total Protein 6.6 g/dl (6.3-8.2); eGFR > 60.00
[2024-08-04 13:56] LABS: Chloride 100 mmol/L (98-107)
== END ==
LOC: REG 12:23
PROVIDERS: ATTENDING PHYSICIAN Physician Assistant; FAMILY PHYSICIAN Family Medicine; REFERRING PHYSICIAN Internal Medicine Gastroenterology
DX: M05.9 Rheumatoid arthritis with rheumatoid factor, unspecified (principal); M32.9 Systemic lupus erythematosus, unspecified; Z51.81 Encounter for therapeutic drug level monitoring; R74.8 Abnormal levels of other serum enzymes; K51.20 Ulcerative (chronic) proctitis without complications
CPT/HCPCS: 36415; 80053; 80076; 82977; 85025; 86140

== ENCOUNTER → 2024-08-08 15:21 | Outpatient (REF) | payer OTHER, SELFPAY | LOC: REG 15:21 | PROVIDERS: ATTENDING PHYSICIAN Internal Medicine Gastroenterology | DX: K51.20 Ulcerative (chronic) proctitis without complications (principal) | CPT/HCPCS: 83993 ==

== ENCOUNTER 2024-10-10 06:27 | Day surgery (SDC) | payer OTHER, SELFPAY | END 2024-10-10 09:47 | disposition home or self-care (01) | LOC: GI 06:27 | PROVIDERS: ATTENDING PHYSICIAN Internal Medicine Gastroenterology | DX: Z12.11 Encounter for screening for malignant neoplasm of colon (principal); K51.20 Ulcerative (chronic) proctitis without complications; K57.30 Diverticulosis of large intestine without perforation or abscess without bleeding; Z86.0101 Personal history of adenomatous and serrated colon polyps | CPT/HCPCS: 45380; 88305 ==

== ENCOUNTER → 2024-11-28 10:29 | Outpatient (REF) | payer OTHER, SELFPAY ==
[2024-11-28 11:01] LABS: % Basophils 0.7 % (0-2); % Eosinophils 2.6 % (0-6); % Immature Granulocytes 0.4 % (0-0.5); % Lymphocytes 18.3 % (20.5-51.1); % Monocytes 5.5 % (1.7-9.3); % Neutrophils 72.5 % (42.2-75.2); Absolute Eosinophils 0.1 10^3/uL (0-0.7); Absolute Monocytes 0.3 10^3/uL (0.1-0.6); Hematocrit 40.8 % (37.0-47.0); Hemoglobin 13.1 g/dL (12.0-16.0); Mean Corp Hgb Conc. 32.1 g/dL (33.0-37.0); Mean Corpuscular Hgb 29.7 pg (27.0-31.0); Mean Corpuscular Volume 92.5 fL (81.0-99.0); Mean Platelet Volume 9.3 fL (7.4-10.4); Nucleated Red Blood Cells % 0 %; Platelet Count 239 10^3/uL (130-400); Red Blood Cell Count 4.41 10^6/uL (4.20-5.40); Red Cell Dist. Width 16.8 % (11.5-14.5); White Blood Cell Count 5.5 10^3/uL (4.8-10.8)
[2024-11-28 11:26] LABS: ALT (SGPT) 19 U/L (0-35); AST (SGOT) 22 U/L (14-36); Albumin 4.6 g/dl (3.5-5.0); Alkaline Phosphatase 118 U/L (38-126); Blood Urea Nitrogen 17 mg/dl (7-17); Calcium 10.4 mg/dl (8.4-10.2); Carbon Dioxide 23 mmol/L (22-30); Chloride 106 mmol/L (98-107); Glucose 117 mg/dl (70-99); Potassium 4.6 mmol/L (3.5-5.1); Sodium 141 mmol/L (135-145); Total Bilirubin 0.8 mg/dl (0.2-1.3); Total Protein 7.1 g/dl (6.3-8.2); eGFR 58.39
== END ==
LOC: REG 10:29
PROVIDERS: ATTENDING PHYSICIAN Physician Assistant; FAMILY PHYSICIAN Family Medicine
DX: M05.9 Rheumatoid arthritis with rheumatoid factor, unspecified (principal); M32.9 Systemic lupus erythematosus, unspecified; Z51.81 Encounter for therapeutic drug level monitoring
CPT/HCPCS: 36415; 80053; 85025; 86140

== ENCOUNTER 2024-12-03 15:07 | Outpatient (RCR) | payer OTHER, SELFPAY | END 2024-12-03 23:59 | disposition home or self-care (01) | LOC: ROT 15:07 | PROVIDERS: ATTENDING PHYSICIAN Orthopaedic Surgery; FAMILY PHYSICIAN Family Medicine | DX: M62.442 Contracture of muscle, left hand (principal); M62.441 Contracture of muscle, right hand; Z73.6 Limitation of activities due to disability; M06.9 Rheumatoid arthritis, unspecified | CPT/HCPCS: 97010; 97018; 97140; 97166; 97535 ==

== ENCOUNTER 2024-12-19 12:59 | Outpatient (RCR) | payer OTHER, SELFPAY | END 2024-12-19 23:59 | disposition home or self-care (01) | LOC: ROT 12:59 | PROVIDERS: ATTENDING PHYSICIAN Orthopaedic Surgery; FAMILY PHYSICIAN Family Medicine | DX: M62.442 Contracture of muscle, left hand (principal); M62.441 Contracture of muscle, right hand; Z73.6 Limitation of activities due to disability; M06.9 Rheumatoid arthritis, unspecified | CPT/HCPCS: 97010; 97018; 97140; 97535 ==

== ENCOUNTER 2025-01-20 06:22 | Day surgery (SDC) | payer OTHER, SELFPAY ==
[2025-01-12 12:03] LABS: Blood Urea Nitrogen 13 mg/dl (7-17); Calcium 10.3 mg/dl (8.4-10.2); Carbon Dioxide 21 mmol/L (22-30); Chloride 106 mmol/L (98-107); Glucose 89 mg/dl (70-99); Potassium 4.8 mmol/L (3.5-5.1); Sodium 137 mmol/L (135-145); eGFR 58.39
[2025-01-12 13:45] VITALS: BMI 23.2
[2025-01-20] VITALS (9 sets, daily range): BP systolic 114–157; BP diastolic 57–99; BMI 23.2
[2025-01-20] MEDS: CELEBREX 200 MG PO (08:10)
[2025-01-20] MEDS: TYLENOL 1000 MG PO (08:10)
[2025-01-20] MEDS: NORMOSOL-R/PLASMALYTE-A 1000 IV (08:21)
== END 2025-01-20 13:25 | disposition home or self-care (01) ==
LOC: SDS 06:22
PROVIDERS: ATTENDING PHYSICIAN Orthopaedic Surgery; FAMILY PHYSICIAN Family Medicine
DX: M66.249 Spontaneous rupture of extensor tendons, unspecified hand (principal); S63.002A Unspecified subluxation of left wrist and hand, initial encounter; X58.XXXA Exposure to other specified factors, initial encounter; M19.042 Primary osteoarthritis, left hand
CPT/HCPCS: 26437 ×3; 36415; 80048; 93005; C1776

== ENCOUNTER 2025-01-20 21:03 | Emergency (ER) | payer OTHER, SELFPAY ==
[2025-01-20 21:25] VITALS: BP 120/67
[2025-01-20 22:00] VITALS: BP 119/54
[2025-01-20] MEDS: NORCO 5/325 1 TABLET PO (22:26)
--- NOTE | 2025-01-21 00:24 | ED.GENMED ---
History of Present Illness
General
Chief Complaint: Post Operative Problem(s)
Source: patient and spouse
Exam Limitations: none
Time Seen by Provider: 01/20/25 21:29
Nursing documentation reviewed up to this point in time: agreed with
History of Present Illness
History of Present Illness:
Patient to ED for post-op bleedng and swelling to her left hand. SHe had surgery with Dr. Milian today. Concerned that dressing is bloody and she states fingers are swollen and tingly. Brought to ED by spouse for eval.
Past History
Past History
ED Past Medical History: GERD
ED Past Surgical History: None
Social History
Tobacco: Non-smoker
Personal:
Living: with family
Review of Systems
Review of Systems
Allergies reviewed?: Yes
All Other Systems: ROS reviewed and negative except as documented in HPI and ROS
Constitutional: Reports no symptoms
Musculoskeletal: Reports other (s/p left hand surgery. Bloody dressing intact. Finger swelling. Neurovasc. intact)
Skin: Reports other (Left hand with bloody dressing and splint intact. )
Neurological: Reports no symptoms
Psychiatric: Reports no symptoms
Phy Exam
General Physical Exam
General Presentation: well appearing and no apparent distress
General age: appears stated age
General Skin: warm and dry
General Habitus: normal
General Mental: alert
Musculoskeletal Exam
Musculoskeletal Exam: neuro vasc intact and other (left fingers swollen. No active bleeding to hand)
Skin Exam
Skin Exam: warm/dry and other (left hand bruising and swelling. Neurovasc. intact.)
Psychiatric Exam
Psychiatric Exam: normal mood/affect
Course
Orders/Labs/Results
Orders:
Orders
01/20/25 22:18
Hydrocodone 5/APAP 325 [[place] 5/325] 1 tablet PO NOW STA
Vital Signs
Initial and Last Documented VS:
Initial Vital Signs
Temp Pulse Resp Pulse Ox
97.4 F 67 15 94
01/20/25 21:04 01/20/25 21:04 01/20/25 21:04 01/20/25 21:04
Last Documented Vital Signs
Temp Pulse Resp BP Pulse Ox
97.4 F 70 16 119/54 96
01/20/25 21:04 01/20/25 21:29 01/20/25 21:29 01/20/25 22:00 01/20/25 22:15
*Critical Care Note
Total Time (30-74mins, 75-104mins- exclusive of procedures): Not Applicable
Update Note
Update Note:
Outer dressing removed by me. Blood is old, no active bleeding noted. left hand neurovascularly intact. Redressed with bulky dressing and splint provided. Will discharge home and she will follow up with ortho in AM. Dr. Romero notified of her
visit here, will pass on to Dr. Milian. Patient and spouse given instructions on s/s to rturn to ED and they are agreeable to plan.
ED Attending Note
-
Portions of this chart may have been created with voice recognition software.� Occasional wrong word or��sound alike� substitutions may have occurred due to the inherent limitations of voice recognition software.
Discharge Plan
Departure
Patient Disposition: Home (Routine Discharge)
Date of Disposition: 01/20/25
Time of Disposition: 22:19
Patient with high blood pressure during this ER visit?: No
Condition: Good
Covid-19: Not Applicable
Discharge Problem:
Post-op bleeding
Instructions: Postoperative Pain (DC), Cold therapy for pain
Prescriptions:
New
hydrocodone-acetaminophen 5-325 mg tablet
1 tab PO Q4H PRN (Reason: Pain) Qty: 12 0RF
No Action
omeprazole 20 mg Capsule,Delayed Release(Dr/Ec)
20 mg PO DAILY
hydroxychloroquine 200 mg Tablet
200 mg PO DAILY
mesalamine 1,000 mg Suppository
1 g [place] HS
mesalamine 1.2 gram Tablet,Delayed Release (Dr/Ec)
3.6 g PO DAILY
cyanocobalamin (vitamin B-12) [Vitamin B-12] 1,000 mcg Tablet
1,000 mcg PO DAILY
prednisone 10 mg Tablets,Dose Pack
10 mg PO DIRECTED
Patient Comments:
Currently starting with 40 mg daily
ascorbic acid (vitamin C) [Vitamin C] 250 mg Tablet
500 mg PO DAILY
magnesium 200 mg Tablet
800 mg PO DAILY
calcium carbonate-vitamin D3 [Calcium 500 + D] 500 mg-10 mcg (400 unit) Tablet
1 tab PO DAILY
Women's Multivitamin 18 mg iron-400 mcg-500 mg Tablet
1 tab PO DAILY
Referrals:
Jeffrey Milian MD [Active, Orthopedics] - Tomorrow
UNKNOWN - PT DOES,NOT KNOW [Unknown Provider]
Interventions
Interventions:
*Risk Screen - Suicide Last Done: 01/20/25 21:04
*General Assessment Last Done: 01/20/25 21:04
*Neglect/Abuse Screening Last Done: 01/20/25 21:04
*ED- Fall Risk Assessment Last Done: 01/20/25 21:29
*ED COVID-19 Vaccine History Last Done: 01/20/25 21:29
*Nursing Disposition Last Done: 01/20/25 22:35
ED-Skin Assessment Last Done: 01/20/25 21:29
Discharge Date and Time
Discharge Date/Time: 01/20/25 22:52
Print Language: PASHTO
== END 2025-01-20 22:52 | disposition home or self-care (01) ==
LOC: EMR 21:03
PROVIDERS: EMERGENCY PHYSICIAN Student in an Organized Health Care Education/Training Program; FAMILY PHYSICIAN Family Medicine
DX: M96.830 Postprocedural hemorrhage of a musculoskeletal structure following a musculoskeletal system procedure (principal)
CPT/HCPCS: 99282

== ENCOUNTER 2025-02-25 10:38 | Outpatient (RCR) | payer OTHER, SELFPAY ==
[2025-02-25 11:00] VITALS: BP 115/69
[2025-02-25] MEDS: ORENCIA 100 MG IV (11:29)
== END 2025-02-26 08:42 | disposition home or self-care (01) ==
LOC: OID 10:38
PROVIDERS: ATTENDING PHYSICIAN Internal Medicine; FAMILY PHYSICIAN Family Medicine
DX: R05.9 Cough, unspecified (principal); M32.9 Systemic lupus erythematosus, unspecified
CPT/HCPCS: 96365; J0129

== ENCOUNTER 2025-03-25 10:37 | Outpatient (RCR) | payer OTHER, SELFPAY ==
[2025-03-11 10:05] VITALS: BP 125/71
[2025-03-11] MEDS: NSS 250 IV (10:20)
[2025-03-11] MEDS: ORENCIA 100 MG IV (10:25)
[2025-03-11 11:10] VITALS: BP 118/55
[2025-03-25 10:45] VITALS: BP 146/64
[2025-03-25] MEDS: NSS 250 IV (11:04)
[2025-03-25] MEDS: ORENCIA 100 MG IV (11:04)
[2025-03-25 11:50] VITALS: BP 113/52
== END 2025-03-26 08:17 | disposition home or self-care (01) ==
LOC: OID 10:37
PROVIDERS: ATTENDING PHYSICIAN Internal Medicine; FAMILY PHYSICIAN Family Medicine
DX: M05.9 Rheumatoid arthritis with rheumatoid factor, unspecified (principal)
CPT/HCPCS: 96365; J0129

== ENCOUNTER → 2025-04-13 13:22 | Outpatient (REF) | payer OTHER, SELFPAY ==
[2025-04-13 14:41] LABS: Hematocrit 39.5 % (37.0-47.0); Hemoglobin 12.3 g/dL (12.0-16.0); Mean Corp Hgb Conc. 31.1 g/dL (33.0-37.0); Mean Corpuscular Volume 84.4 fL (81.0-99.0); Nucleated Red Blood Cells % 0 %; Platelet Count 257 10^3/uL (130-400); Red Cell Dist. Width 15.5 % (11.5-14.5)
[2025-04-13 15:04] LABS: ALT (SGPT) 19 U/L (0-35); AST (SGOT) 22 U/L (14-36); Albumin 4.5 g/dl (3.5-5.0); Alkaline Phosphatase 109 U/L (38-126); Blood Urea Nitrogen 14 mg/dl (7-17); Calcium 11.1 mg/dl (8.4-10.2); Carbon Dioxide 22 mmol/L (22-30); Chloride 106 mmol/L (98-107); Glucose 111 mg/dl (70-99); Potassium 4.6 mmol/L (3.5-5.1); Sodium 137 mmol/L (135-145); Total Protein 7.0 g/dl (6.3-8.2); eGFR > 60.00
[2025-04-13 15:09] LABS: C-Reactive Protein < 5.00 mg/L (0.0-10.00)
== END ==
LOC: REG 13:22
PROVIDERS: ATTENDING PHYSICIAN Internal Medicine; FAMILY PHYSICIAN Family Medicine
DX: M05.9 Rheumatoid arthritis with rheumatoid factor, unspecified (principal)
CPT/HCPCS: 36415; 80053; 85025; 85652; 86140

== ENCOUNTER 2025-04-22 10:44 | Outpatient (RCR) | payer OTHER, SELFPAY ==
[2025-04-22 11:12] VITALS: BP 122/72
[2025-04-22] MEDS: ORENCIA 100 MG IV (11:14)
[2025-04-22] MEDS: NSS 250 IV (11:15)
[2025-04-22 12:41] VITALS: BP 122/55
== END 2025-04-23 12:15 | disposition home or self-care (01) ==
LOC: OID 10:44
PROVIDERS: ATTENDING PHYSICIAN Internal Medicine; FAMILY PHYSICIAN Family Medicine
DX: M05.9 Rheumatoid arthritis with rheumatoid factor, unspecified (principal)
CPT/HCPCS: 96361; 96365; J0129

== ENCOUNTER 2025-05-20 10:39 | Outpatient (RCR) | payer OTHER, SELFPAY ==
[2025-05-20 11:18] VITALS: BP 133/59
[2025-05-20] MEDS: ORENCIA 100 MG IV (11:19)
[2025-05-20] MEDS: NSS 250 IV (11:20)
[2025-05-20 12:10] VITALS: BP 116/42
== END 2025-05-21 11:21 | disposition home or self-care (01) ==
LOC: OID 10:39
PROVIDERS: ATTENDING PHYSICIAN Internal Medicine; FAMILY PHYSICIAN Family Medicine
DX: M05.9 Rheumatoid arthritis with rheumatoid factor, unspecified (principal); M32.9 Systemic lupus erythematosus, unspecified
CPT/HCPCS: 96365; J0129

== ENCOUNTER 2025-06-17 10:40 | Outpatient (RCR) | payer OTHER, SELFPAY ==
[2025-06-17 11:09] VITALS: BP 144/62
[2025-06-17] MEDS: ORENCIA 100 MG IV (11:12)
[2025-06-17] MEDS: NSS 250 IV (11:13)
[2025-06-17 12:10] VITALS: BP 135/52
== END 2025-06-18 09:46 | disposition home or self-care (01) ==
LOC: OID 10:40
PROVIDERS: ATTENDING PHYSICIAN Internal Medicine; FAMILY PHYSICIAN Family Medicine
DX: M05.9 Rheumatoid arthritis with rheumatoid factor, unspecified (principal)
CPT/HCPCS: 96365; J0129

== ENCOUNTER 2025-07-15 10:28 | Outpatient (RCR) | payer OTHER, SELFPAY ==
[2025-07-15 10:44] VITALS: BP 135/71
[2025-07-15] MEDS: NSS 250 IV (11:07)
[2025-07-15] MEDS: ORENCIA 100 MG IV (11:08)
[2025-07-15 11:10] LABS: Hematocrit 38.0 % (37.0-47.0); Hemoglobin 11.6 g/dL (12.0-16.0); Mean Corp Hgb Conc. 30.5 g/dL (33.0-37.0); Mean Corpuscular Volume 85.0 fL (81.0-99.0); Platelet Count 238 10^3/uL (130-400); Red Cell Dist. Width 15.9 % (11.5-14.5)
[2025-07-15 11:52] LABS: ALT (SGPT) 15 U/L (0-35); AST (SGOT) 20 U/L (14-36); Albumin 4.1 g/dl (3.5-5.0); Alkaline Phosphatase 134 U/L (38-126); Blood Urea Nitrogen 18 mg/dl (7-17); Calcium 10.4 mg/dl (8.4-10.2); Carbon Dioxide 22 mmol/L (22-30); Chloride 107 mmol/L (98-107); Glucose 91 mg/dl (70-99); Potassium 4.6 mmol/L (3.5-5.1); Sodium 135 mmol/L (135-145); Total Protein 6.7 g/dl (6.3-8.2); eGFR > 60.00
[2025-07-15 12:00] VITALS: BP 137/66
== END 2025-07-16 09:10 | disposition home or self-care (01) ==
LOC: OID 10:28
PROVIDERS: ATTENDING PHYSICIAN Internal Medicine; FAMILY PHYSICIAN Family Medicine
DX: M05.9 Rheumatoid arthritis with rheumatoid factor, unspecified (principal)
CPT/HCPCS: 36415; 80053; 85025; 96365; J0129